=== PATIENT | male | born 1945 | race African-American/Black ===

== ENCOUNTER 2016-08-22 08:40 | Inpatient (IN) | payer MEDICARE, OTHER ==
[~2016-08-22] VITALS: Ht 172 cm; Wt 63.5 kg
[2016-08-22] MEDS ORDERED: AMLODIPINE BESYL5 MG ORAL (08:59)
[2016-08-22] MEDS ORDERED: COLACE100 MG ORAL (08:59)
[2016-08-22] MEDS ORDERED: ASPIR 8181 MG ORAL (08:59)
[2016-08-22] MEDS ORDERED: ACETAMINOPHEN325 M3 PO (08:59)
[2016-08-22] MEDS ORDERED: EDARBYCLOR 40-1 EAC1 ORAL (08:59)
[2016-08-22] MEDS ORDERED: COREG12.5 MG ORAL (08:59)
[2016-08-22] MEDS ORDERED: FERROUS SULFAT325 MG ORAL (09:01)
[2016-08-22] MEDS ORDERED: HYDROCODON-ACE1 EA15 ORAL (09:01)
[2016-08-22] MEDS ORDERED: ISOSORBIDE DINI40 MG ORAL (09:01)
[2016-08-22] MEDS ORDERED: LIPITOR20 MG ORAL (09:03)
[2016-08-22] MEDS ORDERED: MIRTAZAPINE45 MG ORAL (09:03)
[2016-08-22] MEDS ORDERED: MULTIVITAMINS1 EAC8 ORAL (09:03)
[2016-08-22] MEDS ORDERED: OMEPRAZOLE20 M3 ORAL (09:03)
[2016-08-22] MEDS ORDERED: MELATONIN3 MG ORAL (09:03)
[2016-08-22] MEDS ORDERED: ZOSYN 3.3753.375 GM IV (09:05)
[2016-08-22] MEDS ORDERED: XARELTO20 MG ORAL (09:05)
[2016-08-22] MEDS ORDERED: VANCOMYCIN1 GM/2502 IVPB (09:05)
[2016-08-22 09:16] VITALS: BP 149/52
--- NOTE | 2016-08-22 09:16 | Emergency Room Report ---
History of Present Illness General Chief Complaint: Abnormal Labs Source: Medical Record Present Illness HPI 71-year-old male presents to ED for abnormal labs. Patient referred from SNF for low hemoglobin. Patient has recent history of left leg amputation due to peripheral ischemia. Patient currently has a PICC line in place and given antibiotics for stump infection. Patient recently last which showed low hemoglobin. Patient states he feels okay. Denies any prior history of transfusions however records show patient has been transfused in the past. Denies feeling weak. Denies any chest pain or shortness of breath. No other aggravating relieving factors. Denies any other associated symptoms. PMD is Dr. Barry Allergies: Coded Allergies: No Known Allergies (Unverified , 08/22/16) Patient History Past Medical History: HTN, COPD, psych hx Past Surgical History: other - LLE amputation Pertinent Family History: none Social History: Denies: alcohol use, drug use, smoking Immunizations: UTD Reviewed Nursing Documentation: PMH: Agreed, PSxH: Agreed Nursing Documentation-PMH Hx Cardiac Problems: Yes Hx Hypertension: Yes Hx COPD: Yes History Of Psychiatric Problem: Yes - depression Review of Systems All Other Systems: negative except mentioned in HPI Physical Exam Vital Signs Date Time Temp Pulse Resp B/P Pulse Ox O2 Delivery O2 Flow Rate FiO2 08/22/16 08:39 97.9 78 16 120/70 98 Room Air Sp02 EP Interpretation: reviewed, normal General Appearance: no apparent distress, alert, GCS 15, non-toxic Head: normocephalic Eyes: bilateral eye PERRL, bilateral eye normal inspection ENT: normal ENT inspection Neck: normal inspection Respiratory: chest non-tender, lungs clear, normal breath sounds, speaking full sentences Cardiovascular #1: regular rate, rhythm, no edema Gastrointestinal: normal bowel sounds, non tender, soft, non-distended, no guarding, no rebound Rectal: deferred Genitourinary: no CVA tenderness Musculoskeletal: other - s/p L AKA. approximately 12 cm open wound noted. some discharge noted. no erythema/induration Neurologic: alert, oriented x3, responsive, motor strength/tone normal, sensory intact, speech normal Psychiatric: normal inspection Skin: normal inspection Lymphatic: normal inspection Medical Decision Making Diagnostic Impression: Primary Impression: Anemia Qualified Codes: D64.9 - Anemia, unspecified Additional Impressions: Infection of amputation stump of left lower extremity ARF (acute renal failure) Qualified Codes: N17.9 - Acute kidney failure, unspecified ER Course Hospital Course 71-year-old male presents to ED for evaluation of possible anemia, with possible transfusion. also c/o pain to L stump s/p L AKA Differential diagnoses include: anemia requiring transfusion, microcytic anemia , macrocytic anemia, heavy blood loss Clinical course Patient placed on stretcher. After initial history and physical I ordered labs including CBC and type and screen. wound culture obtained. Labs- hemoglobin/hematocrit 01/09. noted leukocytosis. Cr 1.3 abx given. PRBCs ordered. pain mediications given Case discussed with Dr Barry agreed to admit the patient to his service for further care and support Diagnosis - anemia, infection of amputation stump of LLE, ARF Admitted to floor in serious condition Labs Test 08/22/16 09:05 White Blood Count 13.1 K/UL (4.8-10.8) Red Blood Count 2.11 M/UL (4.70-6.10) Hemoglobin 7.0 G/DL (14.2-18.0) Hematocrit 22.2 % (42.0-52.0) Mean Corpuscular Volume 105 FL (80-99) Mean Corpuscular Hemoglobin 33.1 PG (27.0-31.0) Mean Corpuscular Hemoglobin Concent 31.6 G/DL (32.0-36.0) Red Cell Distribution Width 17.3 % (11.6-14.8) Platelet Count 304 K/UL (150-450) Mean Platelet Volume 7.0 FL (6.5-10.1) Neutrophils (%) (Auto) % (45.0-75.0) Lymphocytes (%) (Auto) % (20.0-45.0) Monocytes (%) (Auto) % (1.0-10.0) Eosinophils (%) (Auto) % (0.0-3.0) Basophils (%) (Auto) % (0.0-2.0) Prothrombin Time 10.8 SEC (9.30-11.50) Prothromb Time International Ratio 1.1 (0.9-1.1) Activated Partial Thromboplast Time 28 SEC (23-33) Sodium Level 136 mEQ/L (135-145) Potassium Level 4.2 mEQ/L (3.4-4.9) Chloride Level 98 mEQ/L (98-107) Carbon Dioxide Level 22 mEQ/L (20-30) Anion Gap 16 (5-15) Blood Urea Nitrogen 27 mg/dL (7-23) Creatinine 1.3 mg/dL (0.7-1.2) Estimat Glomerular Filtration Rate mL/min (>60) Glucose Level 98 mg/dL (74-106) Calcium Level 9.2 mg/dL (8.6-10.2) Total Bilirubin < 0.2 mg/dL (0.0-1.2) Aspartate Amino Transf (AST/SGOT) 18 U/L (5-40) Alanine Aminotransferase (ALT/SGPT) 13 U/L (3-41) Alkaline Phosphatase 54 U/L (40-129) Total Creatine Kinase 85 U/L (38-174) Creatine Kinase MB 3.0 ng/mL (< 6.7) Creatine Kinase MB Relative Index 3.5 Troponin I < 0.30 ng/mL (<=0.30) Total Protein 6.5 g/dL (6.6-8.7) Albumin 3.3 g/dL (3.5-5.2) Globulin 3.2 g/dL Albumin/Globulin Ratio 1.0 (1.0-2.7) Last Vital Signs Date Time Temp Pulse Resp B/P Pulse Ox O2 Delivery O2 Flow Rate FiO2 08/22/16 08:39 97.9 78 16 120/70 98 Room Air Status: improved Disposition: ADMITTED INPATIENT Condition: Serious Referrals: Fritz Barry MD (PCP) LANEY PANDEY M.D. Aug 22, 2016 09:16
[2016-08-22] MEDS ORDERED: Morphine Sulfate 4mg/ml Inj IVP ONE (09:30)
[2016-08-22] MEDS ORDERED: Vancomycin 1 GM in NS 275 ML IV ONE (09:30)
[2016-08-22] MEDS ORDERED: Piperacillin/Tazobactam 3.375 GM in NS 110 ML IVPB ONE (09:30)
[2016-08-22] MEDS ORDERED: Zosyn 3.375gm inj ONE (09:41)
[2016-08-22] MEDS ORDERED: LORazepam Inj 2mg/ml 1ml IV PRN (09:45)
[2016-08-22] MEDS ORDERED: Mylanta II UD 30ml ORAL PRN (09:45)
[2016-08-22] MEDS ORDERED: Miralax 17gm pkt ORAL PRN (09:45)
[2016-08-22] MEDS ORDERED: Zolpidem 5mg tab ORAL PRN (09:45)
[2016-08-22 09:55] LABS: MEAN CORPUSCULAR HEMOGLOBIN 33.1 PG (27.0-31.0); MEAN CORPUSCULAR HGB CONC 31.6 G/DL (32.0-36.0); MEAN CORPUSCULAR VOLUME 105 FL (80-99); PLATELET COUNT 304 K/UL (150-450); RED BLOOD COUNT 2.11 M/UL (4.70-6.10); RED CELL DISTRIBUTION WIDTH 17.3 % (11.6-14.8); WHITE BLOOD COUNT 13.1 K/UL (4.8-10.8)
[2016-08-22 09:58] LABS: ALANINE AMINOTRANSFERASE 13 U/L (3-41); ANION GAP 16 (5-15); ASPARTATE AMINO TRANSFERASE 18 U/L (5-40); CALCIUM 9.2 mg/dL (8.6-10.2); CARBON DIOXIDE 22 mEQ/L (20-30); CHLORIDE 98 mEQ/L (98-107); CREATININE 1.3 mg/dL (0.7-1.2); HEMOLYSIS 0; POTASSIUM 4.2 mEQ/L (3.4-4.9); SODIUM 136 mEQ/L (135-145); TOTAL PROTEIN 6.5 g/dL (6.6-8.7)
[2016-08-22 10:00] LABS: INR 1.1 (0.9-1.1); PROTHROMBIN TIME 10.8 SEC (9.30-11.50)
[2016-08-22 10:05] LABS: TROPONIN I < 0.30 ng/mL (<=0.30)
[2016-08-22 10:56] VITALS: BP 115/49
[2016-08-22 12:19] LABS: ANISOCYTOSIS 1+; BAND NEUTROPHILS % (MANUAL) 0 % (0-8); BASOPHILS % (MANUAL) 0 % (0-2); EOSINOPHILS % (MANUAL) 1 % (0-3); LYMPHOCYTES % (MANUAL) 28 % (20-45); NEUTROPHILS % (MANUAL) 70 % (45-75); PLATELET ESTIMATE ADEQUATE; PLATELET MORPHOLOGY NORMAL; POLYCHROMASIA 1+; TOTAL CELLS COUNTED 100
[2016-08-22 12:20] VITALS: BP 124/51
[2016-08-22 12:20] LABS: HYPOCHROMASIA 1+; MACROCYTES 1+
[2016-08-22 16:08] VITALS: BP 130/53
[2016-08-22] MEDS: Cefepime HCl 1 GM in D5W 55 ML IV SCH (17:25)
[2016-08-22] MEDS ORDERED: Piperacillin/Tazobactam 3.375 GM in D5W 110 ML IVPB SCH (18:00)
--- NOTE | 2016-08-22 18:01 | Consultation ---
History of Present Illness General Date patient seen: Aug 22, 2016 Time patient seen: 18:00 Chief Complaint: Abnormal Labs Referring physician: dr Barry Reason for Consultation: internal medicine management Present Illness HPI 71-year-old male presented to ED for abnormal labs. Patient was referred from [facility] for low hemoglobin. Patient on Xarelto due to A fib Patient had recent history of left leg amputation due to peripheral ischemia. Patient currently has a PICC line for IV antibiotics for stump infection. Denied any prior history of transfusions however records indicated patient has been transfused in the past. Denied feeling weak, dizziness, SON, chest pain . Workup in ED revealed leukocytosis-13.1, HH-7.0/22.2 evidence of renal insufficiency /.3 troponin negative albumin 3.4 PMH: ICD, cardiomyopathy, A fibrillation, CAD, PVD, s/p L AKA, COPD, OA, anemia, depression Allergies: Coded Allergies: No Known Allergies (Unverified , 08/22/16) Medication History Scheduled Amlodipine Besylate* (Amlodipine Besylate*), 5 MG ORAL DAILY, (Reported) Aspirin* (Aspir 81*), 81 MG ORAL DAILY, (Reported) Atorvastatin Calcium* (Lipitor*), 20 MG ORAL BEDTIME, (Reported) Azilsartan Med/Chlorthalidone (Edarbyclor 40-25 Mg Tablet), 1 TAB ORAL DAILY, ( Reported) Carvedilol (Coreg), 12.5 MG ORAL EVERY 12 HOURS, (Reported) Docusate Sodium* (Colace*), 100 MG ORAL DAILY, (Reported) Ferrous Sulfate* (Ferrous Sulfate*), 325 MG ORAL DAILY, (Reported) Isosorbide Dinitrate* (Isordil*), 40 MG ORAL BID, (Reported) Mirtazapine* (Remeron*), 45 MG ORAL BEDTIME, (Reported) Multivitamin With Minerals (Multivitamins With Minerals*), 1 TAB ORAL DAILY, ( Reported) Omeprazole (Omeprazole), 20 MG ORAL DAILY, (Reported) Piperacillin Sodium/Tazobactam (Zosyn 3.375 Gram Vial), 3.375 GM IV EVERY 6 HOURS, (Reported) Rivaroxaban (Xarelto), 20 MG ORAL DAILY, (Reported) Vancomycin Hcl/D5w (Vancomycin-D5w 1 G/250 Ml), 1 GM IVPB Q24H, (Reported) Scheduled PRN Acetaminophen (Acetaminophen), 650 MG PO EVERY 6 HOURS PRN for For Pain, ( Reported) Hydrocodone/Acetaminophen 5-325* (Hydrocodone/Acetaminophen 5-325*), 1 TAB ORAL Q6H PRN for For Pain, (Reported) Melatonin (Melatonin), 3 MG ORAL BEDTIME PRN for Insomnia, (Reported) Patient History Healthcare decision maker Resuscitation status Full Code Advanced Directive on File Review of Systems Constitutional: Reports: no symptoms Eye: Reports: no symptoms ENT: Reports: no symptoms Respiratory: Reports: other - COPD Cardiovascular: Reports: other - ICD, CAD, A fib, PVD Gastrointestinal: Reports: no symptoms Genitourinary: Reports: no symptoms Musculoskeletal: Reports: other - L AKA Skin: Reports: see HPI Psychiatric: Reports: depressed feelings Neurological: Reports: no symptoms Endocrine: Reports: no symptoms Hematologic/Lymphatic: Reports: anemia Physical Exam General Appearance: no apparent distress, alert, other - A/A/O thin AA male in NAD Lines, tubes and drains: PICC - RUE intact HEENT: normocephalic, atraumatic, anicteric, mucous membranes moist, PERRL Neck: supple Respiratory/Chest: chest wall non-tender, lungs clear, normal breath sounds, no respiratory distress, no accessory muscle use Cardiovascular/Chest: normal rate, no JVD, irregularly irregular, other - R UE PICC intact , Left chest ICD Abdomen: normal bowel sounds, non tender, soft Extremities: other - L AKA Skin Exam: warm/dry, other - L AKA. approximately 12 cm open wound with scant amount of serous discharge , no erythema/induration, wound vac Neurologic: alert, oriented x 3, responsive Last 24 Hour Vital Signs Date Time Temp Pulse Resp B/P Pulse Ox O2 Delivery O2 Flow Rate FiO2 08/22/16 16:08 98.8 71 16 130/53 97 Room Air 08/22/16 14:02 97.6 70 17 124/51 98 Room Air 08/22/16 12:20 70 17 124/51 98 Room Air 08/22/16 10:56 97.6 73 12 115/49 100 Room Air 08/22/16 09:57 97.6 08/22/16 09:16 97.6 71 15 149/52 100 Room Air 08/22/16 08:39 97.9 78 16 120/70 98 Room Air Laboratory Tests Test 08/22/16 09:05 White Blood Count 13.1 K/UL (4.8-10.8) H Red Blood Count 2.11 M/UL (4.70-6.10) L Hemoglobin 7.0 G/DL (14.2-18.0) L Hematocrit 22.2 % (42.0-52.0) L Mean Corpuscular Volume 105 FL (80-99) H Mean Corpuscular Hemoglobin 33.1 PG (27.0-31.0) H Mean Corpuscular Hemoglobin Concent 31.6 G/DL (32.0-36.0) L Red Cell Distribution Width 17.3 % (11.6-14.8) H Platelet Count 304 K/UL (150-450) Mean Platelet Volume 7.0 FL (6.5-10.1) Neutrophils (%) (Auto) % (45.0-75.0) Lymphocytes (%) (Auto) % (20.0-45.0) Monocytes (%) (Auto) % (1.0-10.0) Eosinophils (%) (Auto) % (0.0-3.0) Basophils (%) (Auto) % (0.0-2.0) Differential Total Cells Counted 100 Neutrophils % (Manual) 70 % (45-75) Lymphocytes % (Manual) 28 % (20-45) Monocytes % (Manual) 1 % (1-10) Eosinophils % (Manual) 1 % (0-3) Basophils % (Manual) 0 % (0-2) Band Neutrophils 0 % (0-8) Platelet Estimate Adequate Platelet Morphology Normal Polychromasia 1+ Hypochromasia 1+ Anisocytosis 1+ Macrocytosis 1+ Prothrombin Time 10.8 SEC (9.30-11.50) Prothromb Time International Ratio 1.1 (0.9-1.1) Activated Partial Thromboplast Time 28 SEC (23-33) Sodium Level 136 mEQ/L (135-145) Potassium Level 4.2 mEQ/L (3.4-4.9) Chloride Level 98 mEQ/L (98-107) Carbon Dioxide Level 22 mEQ/L (20-30) Anion Gap 16 (5-15) H Blood Urea Nitrogen 27 mg/dL (7-23) H Creatinine 1.3 mg/dL (0.7-1.2) H Estimat Glomerular Filtration Rate mL/min (>60) Glucose Level 98 mg/dL (74-106) Calcium Level 9.2 mg/dL (8.6-10.2) Total Bilirubin < 0.2 mg/dL (0.0-1.2) Aspartate Amino Transf (AST/SGOT) 18 U/L (5-40) Alanine Aminotransferase (ALT/SGPT) 13 U/L (3-41) Alkaline Phosphatase 54 U/L (40-129) Total Creatine Kinase 85 U/L (38-174) Creatine Kinase MB 3.0 ng/mL (< 6.7) Creatine Kinase MB Relative Index 3.5 Troponin I < 0.30 ng/mL (<=0.30) Total Protein 6.5 g/dL (6.6-8.7) L Albumin 3.3 g/dL (3.5-5.2) L Globulin 3.2 g/dL Albumin/Globulin Ratio 1.0 (1.0-2.7) Height (Feet): 5 Height (Inches): 7.72 Weight (Pounds): 140 Medications Current Medications Medications (Trade) Dose Ordered Sig/Sis Route PRN Reason Start Time Stop Time Status Last Admin Dose Admin Acetaminophen (Tylenol) 650 mg Q4H PRN ORAL fever 08/22/16 09:45 09/21/16 09:44 Al Hydroxide/Mg Hydroxide (Mylanta II) 30 ml Q6H PRN ORAL dyspepsia 08/22/16 09:45 09/21/16 09:44 Amlodipine Besylate (Norvasc) 5 mg DAILY ORAL 08/23/16 09:00 09/22/16 08:59 Atorvastatin Calcium (Lipitor) 20 mg BEDTIME ORAL 08/22/16 21:00 09/21/16 20:59 Carvedilol (Coreg) 12.5 mg EVERY 12 HOURS ORAL 08/22/16 21:00 09/21/16 20:59 Cefepime HCl 1 gm/ Dextrose 55 ml @ 110 mls/hr Q24H IV 08/22/16 16:00 08/29/16 15:59 08/22/16 17:25 Dextrose (Dextrose 50%) STAT PRN IV Hypoglycemia 08/22/16 09:45 09/21/16 09:44 Heparin Sodium (Porcine) (Heparin 5000 units/ml) 5,000 units EVERY 12 HOURS SUBQ 08/22/16 21:00 09/21/16 20:59 Lorazepam (Ativan 2mg/ml 1ml) 0.5 mg Q4H PRN IV For Anxiety 08/22/16 09:45 08/29/16 09:44 Morphine Sulfate (Morphine Sulfate) 1 mg Q4H PRN IVP For Pain 08/22/16 09:45 08/29/16 09:44 Ondansetron HCl (Zofran) 4 mg Q6H PRN IVP Nausea & Vomiting 08/22/16 09:45 09/21/16 09:44 Piperacillin Sod/ Tazobactam Sod/ Dextrose (Zosyn/D5W) 110 ml @ 27.5 mls/hr Q8HR@0300,1100,1900 IVPB 08/22/16 18:00 08/29/16 17:59 Polyethylene Glycol (Miralax) 17 gm HSPRN PRN ORAL Constipation 08/22/16 09:45 09/21/16 09:44 Vancomycin HCl 1 ea 1 ea DAILY PRN MISC Per rx protocol 08/22/16 09:45 09/21/16 09:44 Vancomycin HCl 1 gm/Dextrose 275 ml @ 183.708 mls/hr Q24H IVPB 08/23/16 09:00 08/28/16 08:59 Zolpidem Tartrate (Ambien) 5 mg HSPRN PRN ORAL Insomnia 08/22/16 09:45 09/21/16 09:44 Assessment/Plan Assessment/Plan ASSESSMENT leukocytosis possible sepsis infected left leg stump acute anemia, requiring blood transfusion acute renal failure, possibly on chronic Left AKA A fib COPD cardiomyopathy ICD PLAN OF CARE [facility] floor empiric abx, fup with cx ID consult as per PMD O2 HHN prn CXR transfuse 2 u PRBC today anemia workup renal US no IVF due to hx of cardiomyopathy get ECHO pain management bowel regimen fall precautions PT/OT check prealbumin dietary eval wound nurse eval case discussed and evaluated by supervising physician Adán Leavitt)Chio NP Aug 22, 2016 18:01
[2016-08-22] MEDS ORDERED: DuoNeb 0.5-3(2.5)mg/3ml neb HHN PRN (18:15)
[2016-08-22] MEDS: Piperacillin/Tazobactam 3.375 GM in D5W 110 ML IVPB SCH (18:53)
[2016-08-22 20:00] VITALS: BP 151/80
[2016-08-22] MEDS ORDERED: Heparin 5000 units/ml inj SUBQ SCH (21:00)
[2016-08-22] MEDS: Atorvastatin 20mg tab ORAL SCH (22:54)
[2016-08-22] MEDS: Carvedilol 12.5mg tab ORAL SCH (22:55)
[2016-08-23] VITALS: BP 124/47
[2016-08-23] MEDS: Morphine Sulfate 2mg/ml Inj IVP PRN (00:36)
[2016-08-23] MEDS: Piperacillin/Tazobactam 3.375 GM in D5W 110 ML IVPB SCH (03:00)
[2016-08-23 04:00] VITALS: BP 151/61
[2016-08-23 08:15] VITALS: BP 142/63
[2016-08-23] MEDS: Carvedilol 12.5mg tab ORAL SCH ×2 (09:43→21:21)
[2016-08-23] MEDS: Vancomycin 1gm/D5W 275ml IVPB SCH ×2 (09:44)
[2016-08-23 10:19] LABS: BASOPHILS % (AUTO) 0.9 % (0.0-2.0); EOSINOPHILS % (AUTO) 1.9 % (0.0-3.0); LYMPHOCYTES % (AUTO) 21.5 % (20.0-45.0); MEAN CORPUSCULAR HEMOGLOBIN 31.5 PG (27.0-31.0); MEAN CORPUSCULAR HGB CONC 32.2 G/DL (32.0-36.0); MEAN CORPUSCULAR VOLUME 98 FL (80-99); MEAN PLATELET VOLUME 6.8 FL (6.5-10.1); MONOCYTES % (AUTO) 7.1 % (1.0-10.0); NEUTROPHILS % (AUTO) 68.5 % (45.0-75.0); PLATELET COUNT 243 K/UL (150-450); RED BLOOD COUNT 2.97 M/UL (4.70-6.10); RED CELL DISTRIBUTION WIDTH 17.2 % (11.6-14.8); WHITE BLOOD COUNT 10.6 K/UL (4.8-10.8)
[2016-08-23 10:32] LABS: ALANINE AMINOTRANSFERASE 11 U/L (3-41); ANION GAP 12 (5-15); ASPARTATE AMINO TRANSFERASE 18 U/L (5-40); CALCIUM 8.9 mg/dL (8.6-10.2); CARBON DIOXIDE 24 mEQ/L (20-30); CHLORIDE 100 mEQ/L (98-107); CHOLESTEROL 101 mg/dL (< 200); HEMOLYSIS 3; LDL CHOLESTEROL (CALC.) 52 mg/dL (60-99); POTASSIUM 4.4 mEQ/L (3.4-4.9); SODIUM 136 mEQ/L (135-145); TOTAL PROTEIN 5.8 g/dL (6.6-8.7)
[2016-08-23 10:44] LABS: FERRITIN 115 ng/mL (10-230)
--- NOTE | 2016-08-23 10:44 | Diagnostic Imaging Report ---
Indication: Back pain Technique: Renal ultrasound Findings: The right kidney measures 10.3 cm in length. The left kidney measures 10.6 cm in length. There is no hydronephrosis. Bladder is not well distended limiting evaluation. Visualized IVC is unremarkable. Impression: Technically limited examination without hydronephrosis. Bladder not well distended limiting evaluation. CT may be obtained for further evaluation as indicated.
[2016-08-23 10:47] LABS: HEMOLYSIS 13; IRON 50 ug/dL (59-158); TOTAL IRON BINDING CAPACITY 244 ug/dL (250-400)
[2016-08-23 10:50] LABS: HEMOGLOBIN A1C 4.6 % (< 6.0)
[2016-08-23] MEDS ORDERED: Tubing Blood Filter IV ONE (11:08)
[2016-08-23] MEDS ORDERED: Tubing IV Secondary IV ONE (11:08)
[2016-08-23] MEDS ORDERED: NS 275ml ONE (11:08)
[2016-08-23 12:15] VITALS: BP 139/68
--- NOTE | 2016-08-23 12:50 | History & Physical ---
History and Physical History & Physicial Dictated for Int Med-Dr Barry no. [id number]. RANCHO GARDUNO Aug 23, 2016 12:50
--- NOTE | 2016-08-23 12:54 | Pulmonology Progress Note ---
Assessment/Plan Assessment/Plan ASSESSMENT leukocytosis resolved possible sepsis infected left leg stump wound vac acute anemia, iron deficiency s/p blood transfusion acute renal failure/ATN - resolved Left AKA A fib COPD cardiomyopathy ICD PLAN OF CARE [facility] floor empiric abx, fup with cx ID consult as per PMD wound nurse janine re wound vac O2 HHN prn CXR s/p 2 u PRBC on 08/22 , HH up anemia workup with low iron and ferritin, stable B12 start Venofer x 3 ays renal US no hydro no IVF due to hx of cardiomyopathy ECHO pain management bowel regimen fall precautions PT/OT check prealbumin -pending dietary eval case discussed and evaluated by supervising physician Subjective Allergies: Coded Allergies: No Known Allergies (Unverified , 08/22/16) Subjective leukocytosis resolved, afebrile s/p 2 u PRBC, HH up to 9.09/16 Objective Last 24 Hour Vital Signs Date Time Temp Pulse Resp B/P Pulse Ox O2 Delivery O2 Flow Rate FiO2 08/23/16 12:15 98.6 85 21 139/68 96 Room Air 08/23/16 09:43 73 142/63 08/23/16 09:43 73 142/63 08/23/16 08:15 97.9 73 20 142/63 99 Room Air 08/23/16 04:00 96.8 75 20 151/61 99 Room Air 08/23/16 00:00 97.7 60 18 124/47 99 Room Air 08/22/16 22:55 83 151/80 08/22/16 22:34 81 18 Room Air 08/22/16 20:00 97.7 83 18 151/80 100 Room Air 08/22/16 16:08 98.8 71 16 130/53 97 Room Air 08/22/16 14:02 97.6 70 17 124/51 98 Room Air Intake and Output 08/22/16 08/23/16 19:00 07:00 Intake Total 850 ml 250 ml Output Total 1050 ml Balance 850 ml -800 ml Intake Oral 350 ml Other 500 ml 250 ml Output Urine Total 1050 ml # Voids 1 3 # Bowel Movements 1 Objective General Appearance: no apparent distress, alert, other - A/A/O thin AA male in NAD Lines, tubes and drains: PICC - RUE intact HEENT: normocephalic, atraumatic, anicteric, mucous membranes moist, PERRL Neck: supple Respiratory/Chest: chest wall non-tender, lungs clear, normal breath sounds, no respiratory distress, no accessory muscle use Cardiovascular/Chest: normal rate, no JVD, irregularly irregular, R UE PICC intact , Left chest ICD Abdomen: normal bowel sounds, non tender, soft Extremities: other - L AKA Skin Exam: warm/dry, other - L AKA. approximately 12 cm open wound with scant amount of serous discharge , no erythema/induration, wound vac Neurologic: alert, oriented x 3, responsive Microbiology Date/Time Source Procedure Growth Status 08/22/16 09:05 Wound Gram Stain - Final Resulted 08/22/16 09:05 Wound Wound Culture - Preliminary NO GROWTH AFTER 24 HOURS Resulted Laboratory Tests 08/23/16 09:50: White Blood Count 10.6, Red Blood Count 2.97L, Hemoglobin 9.3#L, Hematocrit 29.0 #L, Mean Corpuscular Volume 98, Mean Corpuscular Hemoglobin 31.5H, Mean Corpuscular Hemoglobin Concent 32.2, Red Cell Distribution Width 17.2H, Platelet Count 243, Mean Platelet Volume 6.8, Neutrophils (%) (Auto) 68.5, Lymphocytes (%) (Auto) 21.5, Monocytes (%) (Auto) 7.1, Eosinophils (%) (Auto) 1.9, Basophils (%) (Auto) 0.9, Sodium Level 136, Potassium Level 4.4, Chloride Level 100, Carbon Dioxide Level 24, Anion Gap 12, Blood Urea Nitrogen 18, Creatinine 1.0, Estimat Glomerular Filtration Rate , Glucose Level 114H, Hemoglobin A1c 4.6, Calcium Level 8.9, Iron Level 50L, Total Iron Binding Capacity 244L, Percent Iron Saturation 20, Unsaturated Iron Binding 194, Ferritin 115, Total Bilirubin 0.3, Aspartate Amino Transf (AST/SGOT) 18, Alanine Aminotransferase (ALT/SGPT) 11, Alkaline Phosphatase 41, Total Protein 5.8L, Albumin 3.0L, Globulin 2.8, Albumin/Globulin Ratio 1.0, Prealbumin [ Pending], Triglycerides Level 74, Cholesterol Level 101, LDL Cholesterol 52L, HDL Cholesterol 34, Cholesterol/HDL Ratio 3.0L, Vitamin B12 Level 287, Folate [ Pending], Thyroid Stimulating Hormone (TSH) 3.420 Current Medications Medications (Trade) Dose Ordered Sig/Sis Route PRN Reason Start Time Stop Time Status Last Admin Dose Admin Acetaminophen (Tylenol) 650 mg Q4H PRN ORAL fever 08/22/16 09:45 09/21/16 09:44 Al Hydroxide/Mg Hydroxide (Mylanta II) 30 ml Q6H PRN ORAL dyspepsia 08/22/16 09:45 09/21/16 09:44 Albuterol/ Ipratropium (DuoNeb 0.5-3(2.5)mg/3ml) 3 ml Q4H PRN HHN Shortness of Breath 08/22/16 18:15 08/27/16 18:14 Amlodipine Besylate (Norvasc) 5 mg DAILY ORAL 08/23/16 09:00 09/22/16 08:59 08/23/16 09:43 Atorvastatin Calcium (Lipitor) 20 mg BEDTIME ORAL 08/22/16 21:00 09/21/16 20:59 08/22/16 22:54 Carvedilol (Coreg) 12.5 mg EVERY 12 HOURS ORAL 08/22/16 21:00 09/21/16 20:59 08/23/16 09:43 Cefepime HCl 1 gm/ Dextrose 55 ml @ 110 mls/hr Q24H IV 08/22/16 16:00 08/29/16 15:59 08/22/16 17:25 Dextrose (Dextrose 50%) STAT PRN IV Hypoglycemia 08/22/16 09:45 09/21/16 09:44 Lorazepam (Ativan 2mg/ml 1ml) 0.5 mg Q4H PRN IV For Anxiety 08/22/16 09:45 08/29/16 09:44 Morphine Sulfate (Morphine Sulfate) 1 mg Q4H PRN IVP For Pain 08/22/16 09:45 08/29/16 09:44 08/23/16 00:36 Ondansetron HCl (Zofran) 4 mg Q6H PRN IVP Nausea & Vomiting 08/22/16 09:45 09/21/16 09:44 Polyethylene Glycol (Miralax) 17 gm HSPRN PRN ORAL Constipation 08/22/16 09:45 09/21/16 09:44 Vancomycin HCl 1 ea 1 ea DAILY PRN MISC Per rx protocol 08/22/16 09:45 09/21/16 09:44 Vancomycin HCl/ Dextrose (Vancomycin/D5W) 275 ml @ 183.708 mls/hr Q24H IVPB 08/23/16 09:00 08/28/16 08:59 08/23/16 09:44 Zolpidem Tartrate (Ambien) 5 mg HSPRN PRN ORAL Insomnia 08/22/16 09:45 09/21/16 09:44 Adán (Chio Lang NP Aug 23, 2016 12:54
[2016-08-23 15:42] VITALS: BP 144/64
[2016-08-23] MEDS: Cefepime HCl 1 GM in D5W 55 ML IV SCH (16:19)
[2016-08-23 20:00] VITALS: BP 108/58
[2016-08-23] MEDS: Atorvastatin 20mg tab ORAL SCH (21:21)
[2016-08-24] VITALS: BP 139/64
--- NOTE | 2016-08-24 00:08 | History and Physical Report ---
DATE OF ADMISSION: 08/23/2016 CHIEF COMPLAINT: The patient is a 71-year-old male, who underwent left wlfrx-faw-sggg amputation in June 2016 at [facility], presents with a chief complaint of low hemoglobin. HISTORY OF PRESENT ILLNESS: The patient is currently a resident of [facility]. The patient underwent left vuunx-blx-osky amputation at [facility] in June 2016. The patient was found to have hemoglobin of 6.6 on 08/21/2016 at [facility]. The patient was referred to [facility]. The patient was found to have hemoglobin of 7.0. The patient was admitted for severe anemia to rule out GI bleed. PAST MEDICAL HISTORY: Significant for: 1. Coronary artery disease, status post myocardial infarction. 2. Cardiomyopathy. 3. Severe peripheral vascular disease. 4. Hypertension. 5. Hypercholesterolemia. PAST SURGICAL HISTORY: Significant for: 1. June 2016, vyyae-acd-cbjv amputation of the left lower extremity. 2. Coronary artery bypass graft. 3. AICD placement. CURRENT MEDICATIONS: 1. Tylenol 650 mg one tablet p.o. q. 6 h. p.r.n. 2. Amlodipine 5 mg one tablet p.o. daily. 3. Aspirin 81 mg one tablet p.o. daily. 4. Lipitor 20 mg one tablet p.o. daily at bedtime. 5. Edarbyclor 40/25 mg one tablet p.o. daily. 6. Carvedilol 12.5 mg one tablet p.o. twice daily. 7. Iron sulfate 325 mg one tablet p.o. daily. 8. Bouton 5/325 mg one tablet p.o. q.6 h. p.r.n. 9. Isordil 40 mg one tablet p.o. twice daily. 10. Remeron 45 mg one tablet p.o. at bedtime. 11. Multivitamin one tablet p.o. daily. 12. Omeprazole 20 mg one tablet p.o. daily. 13. Xarelto 20 mg one tablet p.o. daily. ALLERGIES: No known drug allergies. SOCIAL HISTORY: The patient is a resident of [facility]. The patient is single. The patient denies tobacco use and having quit 10 years previously. The patient previously smoked 1-1/2 packs per day prior to that time. The patient denies alcohol use. REVIEW OF SYSTEMS: Constitutional: The patient denies weight loss or weight gain. The patient denies fevers or chills. HEENT: The patient denies ear or throat pain. Cardiovascular: The patient denies palpitations or chest pain. Chest: The patient denies wheezes or shortness of breath. Abdomen: The patient denies nausea, vomiting, or constipation. Genitourinary: The patient denies dysuria or increased frequency of urination. Neuromuscular: The patient has left amputation site pain above the knee. The patient denies seizures or generalized weakness. PHYSICAL EXAMINATION: VITAL SIGNS: Temperature is 97.7 degree, pulse 60, respirations 18, and blood pressure 124/47. GENERAL: The patient is a well-developed and well-nourished male, in no apparent distress. HEENT: Eyes, pupils are equal and responsive to light and accommodation. Extraocular movements are intact. NECK: Supple without lymphadenopathy. CHEST: Lungs are clear to auscultation bilaterally without wheezes or rales. CARDIOVASCULAR: Regular rhythm and rate. S1 and S2 are normal without murmurs, rubs, or gallops. ABDOMEN: Soft, nontender, and nondistended. Positive bowel sounds. No evidence of hepatosplenomegaly. No rebound guarding. EXTREMITIES: There is presence of left epwtj-nfa-qtum amputation. Otherwise, extremities are without clubbing, cyanosis, or edema. RECTAL: Refused. GENITAL: Refused. NEUROLOGIC: Cranial nerves II through XII are grossly intact without focal deficits. Motor strength is 5/5 bilaterally. Deep tendon reflexes are 2+ plantar. LABORATORY STUDIES: WBC is 13.1, hemoglobin 7.0, hematocrit 22.2, and platelets 304,000. Sodium is 136, potassium 4.2, chloride 98, CO2 22, BUN 27, creatinine 1.3, and glucose 98. ASSESSMENT: This is a 71-year-old male: 1. Anemia. 2. Coronary artery disease. 3. Severe cardiomyopathy. 4. Peripheral vascular disease. 5. Hypertension. 6. Hypercholesterolemia. 7. Left rqigb-lia-dyis amputation stump pain. TREATMENT: 1. Anemia. The patient's current hemoglobin is 7.0. The patient is scheduled to have two units of packed red blood cells transfused. Anemia may be secondary to blood loss due to kzqae-tje-jwsw amputation above versus acute gastrointestinal bleed. He will get Gastroenterology consultation with Dr. Bone. The patient will receive two units of packed red blood cells today. 2. Coronary artery disease. The patient is status post coronary artery bypass graft. 3. Cardiomyopathy. A Cardiology consultation will be obtained with Dr. Que Rojas. 4. Peripheral vascular disease. The patient is status post left vfoek-sgy-kdkf amputation. 5. Hypertension. Continue amlodipine as above. 6. Hypercholesterolemia. Continue Lipitor as above. Boy Tillman M.D. DR: Brice JOB#: [id number] CC:
--- NOTE | 2016-08-24 03:28 | Consultation ---
DATE OF CONSULTATION: 08/23/2016 INFECTIOUS DISEASES CONSULTATION PRIMARY ATTENDING PHYSICIAN: Fritz Barry M.D. REFERRING PHYSICIAN: This consult is for coverage of Dr. Coker. REASON FOR CONSULTATION: Infected left foot stump. HISTORY OF PRESENT ILLNESS: The patient is a 71-year-old male admitted yesterday from a nursing facility originally for abnormal labs. He was anemic. The patient had a recent history of hospitalization in [facility] because of gangrene in the left lower extremity that resulted in amputation of left leg above the knee. On the surgical site, the patient is warm with some discharge. PAST MEDICAL HISTORY: Significant for peripheral vascular disease, coronary artery disease status post bypass, COPD, chronic nicotine abuse, left above-knee amputation, dyslipidemia, hypertension, and depression. MEDICATIONS: Amlodipine, vancomycin, atorvastatin, carvedilol, albuterol, cefepime, Tylenol, morphine, MiraLAX, Zofran, and Mylanta. ALLERGIES: No known drug allergy. SOCIAL HISTORY: He is single. Currently, he is a half-way resident. Has a history of smoking. REVIEW OF SYSTEMS: Denies any fever or chills. No headache. No sore throat. No coughing. The patient has some nonproductive cough. No nausea. No vomiting. No diarrhea. No problem is passing urine. The patient ambulates with a cane. PHYSICAL EXAMINATION: GENERAL APPEARANCE: No acute distress. VITAL SIGNS: Afebrile, temperature 97.9 degrees, pulse 73, and blood pressure 142/63. HEAD AND NECK: [place] conjunctivae. HEART: Regular. Normal rate. LUNGS: Clear. ABDOMEN: Soft and nontender. EXTREMITIES: He has left above-knee amputation, had wound VAC. LABORATORY AND DIAGNOSTIC DATA: Labs, WBC at the time of the admission is 13.1 coming down to 10.6, hemoglobin is 9.3 after blood transfusion, hematocrit is 29, and platelets is 243,000. Sodium 136, potassium 4.4, chloride 100, bicarbonate 24, BUN 18, creatinine 1. Albumin is 3. Renal ultrasound showed no obstruction. Impression: Patient seems to have surgical site wound infection. The wound in the left foot stump is very deep and has some discharge. The patient has peripheral vascular disease, coronary artery disease, anemia, hypertension, and dyslipidemia. RECOMMENDATION: We will continue with cefepime and vancomycin. Zosyn was discontinued. We will get x-ray of left foot stump to rule out osteomyelitis. The patient may need a bone scan or MRI. At the end of my exam, I thank Dr. Barry for involving me in the care of this patient. Gil Cao M.D. DR: RADHA JOB#: [id number] CC: MARIAMA
[2016-08-24 04:00] VITALS: BP 148/79
[2016-08-24 05:07] LABS: BASOPHILS % (AUTO) 0.7 % (0.0-2.0); EOSINOPHILS % (AUTO) 2.1 % (0.0-3.0); MEAN CORPUSCULAR HEMOGLOBIN 31.4 PG (27.0-31.0); MEAN CORPUSCULAR HGB CONC 32.2 G/DL (32.0-36.0); MEAN CORPUSCULAR VOLUME 97 FL (80-99); MEAN PLATELET VOLUME 7.6 FL (6.5-10.1); MONOCYTES % (AUTO) 7.7 % (1.0-10.0); NEUTROPHILS % (AUTO) 65.6 % (45.0-75.0); PLATELET COUNT 263 K/UL (150-450); RED BLOOD COUNT 3.23 M/UL (4.70-6.10); RED CELL DISTRIBUTION WIDTH 17.7 % (11.6-14.8); WHITE BLOOD COUNT 11.8 K/UL (4.8-10.8)
[2016-08-24 05:35] LABS: ANION GAP 10 (5-15); CALCIUM 9.2 mg/dL (8.6-10.2); CARBON DIOXIDE 23 mEQ/L (20-30); CHLORIDE 105 mEQ/L (98-107); CREATININE 0.9 mg/dL (0.7-1.2); HEMOLYSIS 6; POTASSIUM 4.4 mEQ/L (3.4-4.9); SODIUM 138 mEQ/L (135-145)
[2016-08-24 07:59] VITALS: BP 150/60
--- NOTE | 2016-08-24 08:56 | Infectious Diseases Prog Note ---
Assessment/Plan Assessment/Plan A: The patient is a 71-year-old Leukocytosis , improving Infected left foot stump. SP gangrene of left lower extremity SP AKA PVD CAD COPD HTN HLD Depression P: Continue with cefepime and vancomycin d# 2 Monitor CBC Monitor BMP Monitor Cultures ( Wnd ) wound care Subjective Allergies: Coded Allergies: No Known Allergies (Unverified , 08/22/16) Objective Vital Signs Last 24 Hour Vital Signs Date Time Temp Pulse Resp B/P Pulse Ox O2 Delivery O2 Flow Rate FiO2 08/24/16 07:59 97.9 68 20 150/60 96 Room Air 08/24/16 04:00 97.5 70 18 148/79 97 Room Air 08/24/16 00:00 97.9 75 18 139/64 96 Room Air 08/23/16 21:54 76 18 Room Air 08/23/16 21:21 77 131/76 08/23/16 20:00 98.2 65 20 108/58 99 Nasal Cannula 2.0 08/23/16 15:42 98.1 70 16 144/64 96 Room Air 08/23/16 12:15 98.6 85 21 139/68 96 Room Air 08/23/16 09:43 73 142/63 08/23/16 09:43 73 142/63 Height (Feet): 5 Height (Inches): 7.72 Weight (Pounds): 140 Microbiology Date/Time Source Procedure Growth Status 08/22/16 09:05 Wound Gram Stain - Final Resulted 08/22/16 09:05 Wound Wound Culture - Preliminary NO GROWTH AFTER 24 HOURS Resulted 08/22/16 09:05 Nasal Nares MRSA Culture - Final NO METHICILLIN RESISTANT STAPH AUREUS... Complete Laboratory Tests Test 08/23/16 09:50 08/24/16 04:20 White Blood Count 10.6 K/UL (4.8-10.8) 11.8 K/UL (4.8-10.8) H Red Blood Count 2.97 M/UL (4.70-6.10) L 3.23 M/UL (4.70-6.10) L Hemoglobin 9.3 G/DL (14.2-18.0) #L 10.1 G/DL (14.2-18.0) L Hematocrit 29.0 % (42.0-52.0) #L 31.4 % (42.0-52.0) L Mean Corpuscular Volume 98 FL (80-99) 97 FL (80-99) Mean Corpuscular Hemoglobin 31.5 PG (27.0-31.0) H 31.4 PG (27.0-31.0) H Mean Corpuscular Hemoglobin Concent 32.2 G/DL (32.0-36.0) 32.2 G/DL (32.0-36.0) Red Cell Distribution Width 17.2 % (11.6-14.8) H 17.7 % (11.6-14.8) H Platelet Count 243 K/UL (150-450) 263 K/UL (150-450) Mean Platelet Volume 6.8 FL (6.5-10.1) 7.6 FL (6.5-10.1) Neutrophils (%) (Auto) 68.5 % (45.0-75.0) 65.6 % (45.0-75.0) Lymphocytes (%) (Auto) 21.5 % (20.0-45.0) 24.0 % (20.0-45.0) Monocytes (%) (Auto) 7.1 % (1.0-10.0) 7.7 % (1.0-10.0) Eosinophils (%) (Auto) 1.9 % (0.0-3.0) 2.1 % (0.0-3.0) Basophils (%) (Auto) 0.9 % (0.0-2.0) 0.7 % (0.0-2.0) Sodium Level 136 mEQ/L (135-145) 138 mEQ/L (135-145) Potassium Level 4.4 mEQ/L (3.4-4.9) 4.4 mEQ/L (3.4-4.9) Chloride Level 100 mEQ/L (98-107) 105 mEQ/L (98-107) Carbon Dioxide Level 24 mEQ/L (20-30) 23 mEQ/L (20-30) Anion Gap 12 (5-15) 10 (5-15) Blood Urea Nitrogen 18 mg/dL (7-23) 17 mg/dL (7-23) Creatinine 1.0 mg/dL (0.7-1.2) 0.9 mg/dL (0.7-1.2) Estimat Glomerular Filtration Rate mL/min (>60) mL/min (>60) Glucose Level 114 mg/dL (74-106) H 92 mg/dL (74-106) Hemoglobin A1c 4.6 % (< 6.0) Calcium Level 8.9 mg/dL (8.6-10.2) 9.2 mg/dL (8.6-10.2) Iron Level 50 ug/dL (59-158) L Total Iron Binding Capacity 244 ug/dL (250-400) L Percent Iron Saturation 20 % (15-50) Unsaturated Iron Binding 194 ug/dL (112-346) Ferritin 115 ng/mL (10-230) Total Bilirubin 0.3 mg/dL (0.0-1.2) Aspartate Amino Transf (AST/SGOT) 18 U/L (5-40) Alanine Aminotransferase (ALT/SGPT) 11 U/L (3-41) Alkaline Phosphatase 41 U/L (40-129) Total Protein 5.8 g/dL (6.6-8.7) L Albumin 3.0 g/dL (3.5-5.2) L Globulin 2.8 g/dL Albumin/Globulin Ratio 1.0 (1.0-2.7) Prealbumin Pending Triglycerides Level 74 mg/dL (< 150) Cholesterol Level 101 mg/dL (< 200) LDL Cholesterol 52 mg/dL (60-99) L HDL Cholesterol 34 mg/dL (> 60) Cholesterol/HDL Ratio 3.0 (3.3-4.4) L Vitamin B12 Level 287 pg/mL (211-946) Folate Pending Thyroid Stimulating Hormone (TSH) 3.420 uIU/mL (0.300-4.500) Pro-B-Type Natriuretic Peptide 5357 pg/mL (0-125) H Current Medications Medications (Trade) Dose Ordered Sig/Sis Route PRN Reason Start Time Stop Time Status Last Admin Dose Admin Acetaminophen (Tylenol) 650 mg Q4H PRN ORAL fever 08/22/16 09:45 09/21/16 09:44 Al Hydroxide/Mg Hydroxide (Mylanta II) 30 ml Q6H PRN ORAL dyspepsia 08/22/16 09:45 09/21/16 09:44 Albuterol/ Ipratropium (DuoNeb 0.5-3(2.5)mg/3ml) 3 ml Q4H PRN HHN Shortness of Breath 08/22/16 18:15 08/27/16 18:14 Amlodipine Besylate (Norvasc) 5 mg DAILY ORAL 08/23/16 09:00 09/22/16 08:59 08/23/16 09:43 Atorvastatin Calcium (Lipitor) 20 mg BEDTIME ORAL 08/22/16 21:00 09/21/16 20:59 08/23/16 21:21 Carvedilol (Coreg) 12.5 mg EVERY 12 HOURS ORAL 08/22/16 21:00 09/21/16 20:59 08/23/16 21:21 Cefepime HCl 1 gm/ Dextrose 55 ml @ 110 mls/hr Q24H IV 08/22/16 16:00 08/29/16 15:59 08/23/16 16:19 Dextrose (Dextrose 50%) STAT PRN IV Hypoglycemia 08/22/16 09:45 09/21/16 09:44 Lorazepam (Ativan 2mg/ml 1ml) 0.5 mg Q4H PRN IV For Anxiety 08/22/16 09:45 08/29/16 09:44 Morphine Sulfate (Morphine Sulfate) 1 mg Q4H PRN IVP For Pain 08/22/16 09:45 08/29/16 09:44 08/23/16 00:36 Ondansetron HCl (Zofran) 4 mg Q6H PRN IVP Nausea & Vomiting 08/22/16 09:45 09/21/16 09:44 Polyethylene Glycol (Miralax) 17 gm HSPRN PRN ORAL Constipation 08/22/16 09:45 09/21/16 09:44 Vancomycin HCl 1 ea 1 ea DAILY PRN MISC Per rx protocol 08/22/16 09:45 09/21/16 09:44 Vancomycin HCl/ Dextrose (Vancomycin/D5W) 275 ml @ 183.708 mls/hr Q24H IVPB 08/23/16 09:00 08/28/16 08:59 08/23/16 09:44 Zolpidem Tartrate (Ambien) 5 mg HSPRN PRN ORAL Insomnia 08/22/16 09:45 09/21/16 09:44 JACK PATTERSON M.D. Aug 24, 2016 08:56
[2016-08-24] MEDS: Vancomycin 1gm/D5W 275ml IVPB SCH ×2 (09:10)
[2016-08-24] MEDS: Carvedilol 12.5mg tab ORAL SCH ×2 (09:10→21:27)
--- NOTE | 2016-08-24 11:18 | Internal Med Progress Note ---
Subjective Date of Service: Aug 24, 2016 Physician Name Rancho Garduno Attending Physician Fritz Barry MD Current Medications Medications (Trade) Dose Ordered Sig/Sis Route PRN Reason Start Time Stop Time Status Last Admin Dose Admin Acetaminophen (Tylenol) 650 mg Q4H PRN ORAL fever 08/22/16 09:45 09/21/16 09:44 Al Hydroxide/Mg Hydroxide (Mylanta II) 30 ml Q6H PRN ORAL dyspepsia 08/22/16 09:45 09/21/16 09:44 Albuterol/ Ipratropium (DuoNeb 0.5-3(2.5)mg/3ml) 3 ml Q4H PRN HHN Shortness of Breath 08/22/16 18:15 08/27/16 18:14 Amlodipine Besylate (Norvasc) 5 mg DAILY ORAL 08/23/16 09:00 09/22/16 08:59 08/24/16 09:11 Atorvastatin Calcium (Lipitor) 20 mg BEDTIME ORAL 08/22/16 21:00 09/21/16 20:59 08/23/16 21:21 Carvedilol (Coreg) 12.5 mg EVERY 12 HOURS ORAL 08/22/16 21:00 09/21/16 20:59 08/24/16 09:10 Cefepime HCl 1 gm/ Dextrose 55 ml @ 110 mls/hr Q24H IV 08/22/16 16:00 08/29/16 15:59 08/23/16 16:19 Dextrose (Dextrose 50%) STAT PRN IV Hypoglycemia 08/22/16 09:45 09/21/16 09:44 Lorazepam (Ativan 2mg/ml 1ml) 0.5 mg Q4H PRN IV For Anxiety 08/22/16 09:45 08/29/16 09:44 Morphine Sulfate (Morphine Sulfate) 1 mg Q4H PRN IVP For Pain 08/22/16 09:45 08/29/16 09:44 08/23/16 00:36 Ondansetron HCl (Zofran) 4 mg Q6H PRN IVP Nausea & Vomiting 08/22/16 09:45 09/21/16 09:44 Polyethylene Glycol (Miralax) 17 gm HSPRN PRN ORAL Constipation 08/22/16 09:45 09/21/16 09:44 Vancomycin HCl 1 ea 1 ea DAILY PRN MISC Per rx protocol 08/22/16 09:45 09/21/16 09:44 Vancomycin HCl/ Dextrose (Vancomycin/D5W) 275 ml @ 183.708 mls/hr Q24H IVPB 08/23/16 09:00 08/28/16 08:59 08/24/16 09:10 Zolpidem Tartrate (Ambien) 5 mg HSPRN PRN ORAL Insomnia 08/22/16 09:45 09/21/16 09:44 Allergies: Coded Allergies: No Known Allergies (Unverified , 08/22/16) ROS Limited/Unobtainable: No Constitutional: Reports: no symptoms HEENT: Reports: no symptoms Cardiovascular: Reports: no symptoms Respiratory: Reports: no symptoms Gastrointestinal/Abdominal: Reports: no symptoms Genitourinary: Reports: no symptoms Neurologic/Psychiatric: Reports: no symptoms Subjective 71 YO M admitted with anemia and left AKA infection. Cover for Int Michael-Dr Barry. Objective Last Vital Signs Date Time Temp Pulse Resp B/P Pulse Ox O2 Delivery O2 Flow Rate FiO2 08/24/16 09:11 68 150/60 08/24/16 07:59 97.9 20 96 Room Air 08/23/16 20:00 2.0 General Appearance: WD/WN, no apparent distress, alert EENT: PERRL/EOMI, normal ENT inspection Neck: non-tender, normal alignment, supple, normal inspection Cardiovascular: normal peripheral pulses, normal rate, regular rhythm, no gallop/murmur, no JVD Respiratory/Chest: chest wall non-tender, lungs clear, normal breath sounds, no respiratory distress, no accessory muscle use Abdomen: normal bowel sounds, non tender, soft, no organomegaly, no mass Extremities: normal range of motion, non-tender 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 Skin: normal pigmentation, warm/dry Laboratory Tests Test 08/24/16 04:20 White Blood Count 11.8 K/UL (4.8-10.8) H Red Blood Count 3.23 M/UL (4.70-6.10) L Hemoglobin 10.1 G/DL (14.2-18.0) L Hematocrit 31.4 % (42.0-52.0) L Mean Corpuscular Volume 97 FL (80-99) Mean Corpuscular Hemoglobin 31.4 PG (27.0-31.0) H Mean Corpuscular Hemoglobin Concent 32.2 G/DL (32.0-36.0) Red Cell Distribution Width 17.7 % (11.6-14.8) H Platelet Count 263 K/UL (150-450) Mean Platelet Volume 7.6 FL (6.5-10.1) Neutrophils (%) (Auto) 65.6 % (45.0-75.0) Lymphocytes (%) (Auto) 24.0 % (20.0-45.0) Monocytes (%) (Auto) 7.7 % (1.0-10.0) Eosinophils (%) (Auto) 2.1 % (0.0-3.0) Basophils (%) (Auto) 0.7 % (0.0-2.0) Sodium Level 138 mEQ/L (135-145) Potassium Level 4.4 mEQ/L (3.4-4.9) Chloride Level 105 mEQ/L (98-107) Carbon Dioxide Level 23 mEQ/L (20-30) Anion Gap 10 (5-15) Blood Urea Nitrogen 17 mg/dL (7-23) Creatinine 0.9 mg/dL (0.7-1.2) Estimat Glomerular Filtration Rate mL/min (>60) Glucose Level 92 mg/dL (74-106) Calcium Level 9.2 mg/dL (8.6-10.2) Pro-B-Type Natriuretic Peptide 5357 pg/mL (0-125) H Microbiology Date/Time Source Procedure Growth Status 08/22/16 09:05 Wound Gram Stain - Final Resulted 08/22/16 09:05 Wound Wound Culture - Preliminary NO GROWTH AFTER 48 HOURS Resulted 08/22/16 09:05 Nasal Nares MRSA Culture - Final NO METHICILLIN RESISTANT STAPH AUREUS... Complete 08/22/16 09:05 Rectum VRE Culture - Final NO VANCOMYCIN RESISTANT ENTEROCOCCUS ... Complete Intake and Output 08/23/16 08/24/16 18:59 06:59 Intake Total 1255.000 ml 120 ml Output Total 300 ml 550 ml Balance 955.000 ml -430 ml Intake Oral 980 ml 120 ml IV Total 275.000 ml Output Urine Total 300 ml 550 ml Drainage Total 0 ml # Voids 3 4 # Bowel Movements 3 1 Assessment/Plan Problem List: (1) CAD (coronary artery disease) (2) CHF (congestive heart failure) Assessment & Plan: See cardiology note. (3) Cardiomyopathy (4) Peripheral vascular disease (5) HTN (hypertension) Assessment & Plan: Continue norvasc. (6) Hypercholesteremia Assessment & Plan: Continue lipitor. (7) Anemia Assessment & Plan: S/P transfusion 2 units PRBC. 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 Continue vanco and cefepime per ID. D/C zosyn. Await plastic surgery consult-Dr Andrade Status: not improved RANCHO GARDUNO Aug 24, 2016 11:18
[2016-08-24 11:47] VITALS: BP 140/70
--- NOTE | 2016-08-24 12:10 | Diagnostic Imaging Report ---
Indication: Pain Findings: 2 views of the left femur were obtained. Amputation at the subtrochanteric aspect of the left femur noted. This appears unremarkable. There is no evidence of focal erosion, periostitis, soft tissue air to suggest infection on the basis of plain x-ray. Please correlate clinically. Extensive vascular calcifications are noted. Impression: Left femur amputation stump. No plain film evidence for osteomyelitis. Consider MRI.
--- NOTE | 2016-08-24 12:37 | Diagnostic Imaging Report ---
Indication: Dyspnea Comparison: None A single view chest radiograph was obtained. Findings: No definite infiltrate or pulmonary vascular congestion identified. Sternotomy and pacemaker are noted. A PICC line is in good position with the tip in the SVC. The heart is enlarged. The aorta is mildly enlarged consistent with atherosclerotic vascular disease. The bones are osteopenic. Impression: No acute disease
[2016-08-24 16:00] VITALS: BP 155/71
--- NOTE | 2016-08-24 16:32 | Pulmonology Progress Note ---
Assessment/Plan Problems: (1) Sepsis (2) AKA stump complication (3) ARF (acute renal failure) (4) HTN (hypertension) (5) Cardiomyopathy (6) ICD (implantable cardioverter-defibrillator) in place (7) CAD (coronary artery disease) Assessment/Plan IV antibiotics wound care, continue pneumovac check cultures anemia w/u Subjective ROS Limited/Unobtainable: No Interval Events: doing better, no new complains Allergies: Coded Allergies: No Known Allergies (Unverified , 08/22/16) Objective Last 24 Hour Vital Signs Date Time Temp Pulse Resp B/P Pulse Ox O2 Delivery O2 Flow Rate FiO2 08/24/16 11:47 97.5 73 20 140/70 95 Room Air 08/24/16 09:11 68 150/60 08/24/16 09:10 68 150/60 08/24/16 07:59 97.9 68 20 150/60 96 Room Air 08/24/16 07:21 73 18 Room Air 08/24/16 04:00 97.5 70 18 148/79 97 Room Air 08/24/16 00:00 97.9 75 18 139/64 96 Room Air 08/23/16 21:54 76 18 Room Air 08/23/16 21:21 77 131/76 08/23/16 20:00 98.2 65 20 108/58 99 Nasal Cannula 2.0 Intake and Output 08/23/16 08/24/16 19:00 07:00 Intake Total 1255.000 ml 120 ml Output Total 300 ml 550 ml Balance 955.000 ml -430 ml Intake Oral 980 ml 120 ml IV Total 275.000 ml Output Urine Total 300 ml 550 ml Drainage Total 0 ml # Voids 3 4 # Bowel Movements 3 1 HEENT: normocephalic Respiratory/Chest: chest wall non-tender, lungs clear Cardiovascular: normal peripheral pulses, normal rate Abdomen: normal bowel sounds, soft, non tender Extremities: no cyanosis, no clubbing Skin: no ulcers 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 Complete 08/22/16 09:05 Rectum VRE Culture - Final NO VANCOMYCIN RESISTANT ENTEROCOCCUS ... Complete Laboratory Tests 08/24/16 04:20: White Blood Count 11.8H, Red Blood Count 3.23L, Hemoglobin 10.1L, Hematocrit 31.4L, Mean Corpuscular Volume 97, Mean Corpuscular Hemoglobin 31.4H, Mean Corpuscular Hemoglobin Concent 32.2, Red Cell Distribution Width 17.7H, Platelet Count 263, Mean Platelet Volume 7.6, Neutrophils (%) (Auto) 65.6, Lymphocytes (%) (Auto) 24.0, Monocytes (%) (Auto) 7.7, Eosinophils (%) (Auto) 2.1, Basophils (%) (Auto) 0.7, Sodium Level 138, Potassium Level 4.4, Chloride Level 105, Carbon Dioxide Level 23, Anion Gap 10, Blood Urea Nitrogen 17, Creatinine 0.9, Estimat Glomerular Filtration Rate , Glucose Level 92, Calcium Level 9.2, Pro-B-Type Natriuretic Peptide 5357H Current Medications Medications (Trade) Dose Ordered Sig/Sis Route PRN Reason Start Time Stop Time Status Last Admin Dose Admin Acetaminophen (Tylenol) 650 mg Q4H PRN ORAL fever 08/22/16 09:45 09/21/16 09:44 Al Hydroxide/Mg Hydroxide (Mylanta II) 30 ml Q6H PRN ORAL dyspepsia 08/22/16 09:45 09/21/16 09:44 Albuterol/ Ipratropium (DuoNeb 0.5-3(2.5)mg/3ml) 3 ml Q4H PRN HHN Shortness of Breath 08/22/16 18:15 08/27/16 18:14 Amlodipine Besylate (Norvasc) 5 mg DAILY ORAL 08/23/16 09:00 09/22/16 08:59 08/24/16 09:11 Atorvastatin Calcium (Lipitor) 20 mg BEDTIME ORAL 08/22/16 21:00 09/21/16 20:59 08/23/16 21:21 Carvedilol (Coreg) 12.5 mg EVERY 12 HOURS ORAL 08/22/16 21:00 09/21/16 20:59 08/24/16 09:10 Cefepime HCl 1 gm/ Dextrose 55 ml @ 110 mls/hr Q24H IV 08/22/16 16:00 08/29/16 15:59 08/23/16 16:19 Dextrose (Dextrose 50%) STAT PRN IV Hypoglycemia 08/22/16 09:45 09/21/16 09:44 Lorazepam (Ativan 2mg/ml 1ml) 0.5 mg Q4H PRN IV For Anxiety 08/22/16 09:45 08/29/16 09:44 Morphine Sulfate (Morphine Sulfate) 1 mg Q4H PRN IVP For Pain 08/22/16 09:45 08/29/16 09:44 08/23/16 00:36 Ondansetron HCl (Zofran) 4 mg Q6H PRN IVP Nausea & Vomiting 08/22/16 09:45 09/21/16 09:44 Polyethylene Glycol (Miralax) 17 gm HSPRN PRN ORAL Constipation 08/22/16 09:45 09/21/16 09:44 Vancomycin HCl 1 ea 1 ea DAILY PRN MISC Per rx protocol 08/22/16 09:45 09/21/16 09:44 Vancomycin HCl/ Dextrose (Vancomycin/D5W) 275 ml @ 183.708 mls/hr Q24H IVPB 08/23/16 09:00 08/28/16 08:59 08/24/16 09:10 Zolpidem Tartrate (Ambien) 5 mg HSPRN PRN ORAL Insomnia 08/22/16 09:45 09/21/16 09:44 WINDY DUFF Aug 24, 2016 16:32
[2016-08-24] MEDS: Cefepime HCl 1 GM in D5W 55 ML IV SCH (16:37)
[2016-08-24 19:00] VITALS: BP 153/74
[2016-08-24] MEDS: Atorvastatin 20mg tab ORAL SCH (21:28)
[2016-08-25] VITALS: BP 151/60
[2016-08-25 07:17] LABS: ANION GAP 15 (5-15); CALCIUM 8.8 mg/dL (8.6-10.2); CARBON DIOXIDE 21 mEQ/L (20-30); CHLORIDE 101 mEQ/L (98-107); CREATININE 0.9 mg/dL (0.7-1.2); HEMOLYSIS 13; POTASSIUM 4.1 mEQ/L (3.4-4.9); SODIUM 137 mEQ/L (135-145)
[2016-08-25 07:34] LABS: BASOPHILS % (AUTO) 0.6 % (0.0-2.0); EOSINOPHILS % (AUTO) 1.9 % (0.0-3.0); LYMPHOCYTES % (AUTO) 23.8 % (20.0-45.0); MEAN CORPUSCULAR HGB CONC 32.4 G/DL (32.0-36.0); MEAN CORPUSCULAR VOLUME 99 FL (80-99); MEAN PLATELET VOLUME 7.8 FL (6.5-10.1); MONOCYTES % (AUTO) 7.2 % (1.0-10.0); NEUTROPHILS % (AUTO) 66.5 % (45.0-75.0); PLATELET COUNT 266 K/UL (150-450); RED BLOOD COUNT 3.18 M/UL (4.70-6.10); RED CELL DISTRIBUTION WIDTH 18.4 % (11.6-14.8); WHITE BLOOD COUNT 9.4 K/UL (4.8-10.8)
[2016-08-25 08:12] VITALS: BP 134/74
[2016-08-25] MEDS: Carvedilol 12.5mg tab ORAL SCH ×2 (08:23→20:47)
--- NOTE | 2016-08-25 09:01 | Infectious Diseases Prog Note ---
Assessment/Plan Assessment/Plan A: The patient is a 71-year-old Leukocytosis , SP Infected left foot stump. Wnd c x 08/16 Serratia and PSA, SP gangrene of left lower extremity SP AKA PVD CAD COPD HTN HLD Depression P: Continue with cefepime and vancomycin d# 3 Monitor CBC Monitor BMP Monitor Cultures ( Wnd ) wound care Vasc Sx following Subjective Constitutional: Denies: anorexia, chills, drenching sweats, fatigue, fever, no symptoms, other Allergies: Coded Allergies: No Known Allergies (Unverified , 08/22/16) Objective Vital Signs Last 24 Hour Vital Signs Date Time Temp Pulse Resp B/P Pulse Ox O2 Delivery O2 Flow Rate FiO2 08/25/16 08:23 84 134/74 08/25/16 08:23 84 134/74 08/25/16 08:12 97.2 84 15 134/74 98 Room Air 08/25/16 07:52 83 16 Room Air 21 08/25/16 00:00 98.2 65 18 151/60 96 Room Air 08/24/16 21:27 71 153/74 08/24/16 19:00 98.1 71 20 153/74 97 Room Air 08/24/16 18:35 71 20 Room Air 2.0 21 08/24/16 16:00 98.6 71 20 155/71 96 Room Air 08/24/16 11:47 97.5 73 20 140/70 95 Room Air 08/24/16 09:11 68 150/60 08/24/16 09:10 68 150/60 Height (Feet): 5 Height (Inches): 7.72 Weight (Pounds): 140 HEENT: anicteric Respiratory/Chest: normal breath sounds Cardiovascular: normal rate Abdomen: non distended Microbiology Date/Time Source Procedure Growth Status 08/22/16 09:05 Wound Gram Stain - Final Resulted 08/22/16 09:05 Wound Wound Culture - Preliminary NO GROWTH AFTER 48 HOURS Resulted 08/22/16 09:05 Nasal Nares MRSA Culture - Final NO METHICILLIN RESISTANT STAPH AUREUS... Complete 08/22/16 09:05 Rectum VRE Culture - Final NO VANCOMYCIN RESISTANT ENTEROCOCCUS ... Complete Laboratory Tests Test 08/25/16 06:30 White Blood Count 9.4 K/UL (4.8-10.8) Red Blood Count 3.18 M/UL (4.70-6.10) L Hemoglobin 10.2 G/DL (14.2-18.0) L Hematocrit 31.3 % (42.0-52.0) L Mean Corpuscular Volume 99 FL (80-99) Mean Corpuscular Hemoglobin 32.0 PG (27.0-31.0) H Mean Corpuscular Hemoglobin Concent 32.4 G/DL (32.0-36.0) Red Cell Distribution Width 18.4 % (11.6-14.8) H Platelet Count 266 K/UL (150-450) Mean Platelet Volume 7.8 FL (6.5-10.1) Neutrophils (%) (Auto) 66.5 % (45.0-75.0) Lymphocytes (%) (Auto) 23.8 % (20.0-45.0) Monocytes (%) (Auto) 7.2 % (1.0-10.0) Eosinophils (%) (Auto) 1.9 % (0.0-3.0) Basophils (%) (Auto) 0.6 % (0.0-2.0) Sodium Level 137 mEQ/L (135-145) Potassium Level 4.1 mEQ/L (3.4-4.9) Chloride Level 101 mEQ/L (98-107) Carbon Dioxide Level 21 mEQ/L (20-30) Anion Gap 15 (5-15) Blood Urea Nitrogen 15 mg/dL (7-23) Creatinine 0.9 mg/dL (0.7-1.2) Estimat Glomerular Filtration Rate mL/min (>60) Glucose Level 90 mg/dL (74-106) Calcium Level 8.8 mg/dL (8.6-10.2) Current Medications Medications (Trade) Dose Ordered Sig/Sis Route PRN Reason Start Time Stop Time Status Last Admin Dose Admin Acetaminophen (Tylenol) 650 mg Q4H PRN ORAL fever 08/22/16 09:45 09/21/16 09:44 Al Hydroxide/Mg Hydroxide (Mylanta II) 30 ml Q6H PRN ORAL dyspepsia 08/22/16 09:45 09/21/16 09:44 Albuterol/ Ipratropium (DuoNeb 0.5-3(2.5)mg/3ml) 3 ml Q4H PRN HHN Shortness of Breath 08/22/16 18:15 08/27/16 18:14 Amlodipine Besylate (Norvasc) 5 mg DAILY ORAL 08/23/16 09:00 09/22/16 08:59 08/25/16 08:23 Atorvastatin Calcium (Lipitor) 20 mg BEDTIME ORAL 08/22/16 21:00 09/21/16 20:59 08/24/16 21:28 Carvedilol (Coreg) 12.5 mg EVERY 12 HOURS ORAL 08/22/16 21:00 09/21/16 20:59 08/25/16 08:23 Cefepime HCl 1 gm/ Dextrose 55 ml @ 110 mls/hr Q24H IV 08/22/16 16:00 08/29/16 15:59 08/24/16 16:37 Dextrose (Dextrose 50%) STAT PRN IV Hypoglycemia 08/22/16 09:45 09/21/16 09:44 Lorazepam (Ativan 2mg/ml 1ml) 0.5 mg Q4H PRN IV For Anxiety 08/22/16 09:45 08/29/16 09:44 Morphine Sulfate (Morphine Sulfate) 1 mg Q4H PRN IVP For Pain 08/22/16 09:45 08/29/16 09:44 08/23/16 00:36 Ondansetron HCl (Zofran) 4 mg Q6H PRN IVP Nausea & Vomiting 08/22/16 09:45 09/21/16 09:44 Polyethylene Glycol (Miralax) 17 gm HSPRN PRN ORAL Constipation 08/22/16 09:45 09/21/16 09:44 Vancomycin HCl 1 ea 1 ea DAILY PRN MISC Per rx protocol 08/22/16 09:45 09/21/16 09:44 Vancomycin HCl/ Dextrose (Vancomycin/D5W) 275 ml @ 183.708 mls/hr Q24H IVPB 08/23/16 09:00 08/28/16 08:59 08/24/16 09:10 Zolpidem Tartrate (Ambien) 5 mg HSPRN PRN ORAL Insomnia 08/22/16 09:45 09/21/16 09:44 JACK PATTERSON M.D. Aug 25, 2016 09:01
[2016-08-25] MEDS: Vancomycin 1gm/D5W 275ml IVPB SCH ×2 (09:52)
[2016-08-25 11:32] VITALS: BP 149/60
[2016-08-25 16:00] VITALS: BP 148/69
[2016-08-25] MEDS: Cefepime HCl 1 GM in D5W 55 ML IV SCH (16:17)
--- NOTE | 2016-08-25 17:42 | Internal Med Progress Note ---
Subjective Date of Service: Aug 25, 2016 Physician Name Rancho Garduno Attending Physician Fritz Barry MD Current Medications Medications (Trade) Dose Ordered Sig/Sis Route PRN Reason Start Time Stop Time Status Last Admin Dose Admin Acetaminophen (Tylenol) 650 mg Q4H PRN ORAL fever 08/22/16 09:45 09/21/16 09:44 Al Hydroxide/Mg Hydroxide (Mylanta II) 30 ml Q6H PRN ORAL dyspepsia 08/22/16 09:45 09/21/16 09:44 Albuterol/ Ipratropium (DuoNeb 0.5-3(2.5)mg/3ml) 3 ml Q4H PRN HHN Shortness of Breath 08/22/16 18:15 08/27/16 18:14 Amlodipine Besylate (Norvasc) 5 mg DAILY ORAL 08/23/16 09:00 09/22/16 08:59 08/25/16 08:23 Atorvastatin Calcium (Lipitor) 20 mg BEDTIME ORAL 08/22/16 21:00 09/21/16 20:59 08/24/16 21:28 Carvedilol (Coreg) 12.5 mg EVERY 12 HOURS ORAL 08/22/16 21:00 09/21/16 20:59 08/25/16 08:23 Cefepime HCl 1 gm/ Dextrose 55 ml @ 110 mls/hr Q24H IV 08/22/16 16:00 08/29/16 15:59 08/25/16 16:17 Dextrose (Dextrose 50%) STAT PRN IV Hypoglycemia 08/22/16 09:45 09/21/16 09:44 Lorazepam (Ativan 2mg/ml 1ml) 0.5 mg Q4H PRN IV For Anxiety 08/22/16 09:45 08/29/16 09:44 Morphine Sulfate (Morphine Sulfate) 1 mg Q4H PRN IVP For Pain 08/22/16 09:45 08/29/16 09:44 08/23/16 00:36 Ondansetron HCl (Zofran) 4 mg Q6H PRN IVP Nausea & Vomiting 08/22/16 09:45 09/21/16 09:44 Polyethylene Glycol (Miralax) 17 gm HSPRN PRN ORAL Constipation 08/22/16 09:45 09/21/16 09:44 Vancomycin HCl 1 ea 1 ea DAILY PRN MISC Per rx protocol 08/22/16 09:45 09/21/16 09:44 Vancomycin HCl/ Dextrose (Vancomycin/D5W) 275 ml @ 183.708 mls/hr Q24H IVPB 08/23/16 09:00 08/28/16 08:59 08/25/16 09:52 Zolpidem Tartrate (Ambien) 5 mg HSPRN PRN ORAL Insomnia 08/22/16 09:45 09/21/16 09:44 Allergies: Coded Allergies: No Known Allergies (Unverified , 08/22/16) ROS Limited/Unobtainable: No Constitutional: Reports: no symptoms HEENT: Reports: no symptoms Cardiovascular: Reports: no symptoms Respiratory: Reports: no symptoms Gastrointestinal/Abdominal: Reports: no symptoms Genitourinary: Reports: no symptoms Neurologic/Psychiatric: Reports: no symptoms Subjective 71 YO M admitted with anemia and left AKA infection. Cover for Int Michael-Dr Barry. Await plastic surgery consult and bone scan. Objective Last Vital Signs Date Time Temp Pulse Resp B/P Pulse Ox O2 Delivery O2 Flow Rate FiO2 08/25/16 11:32 97.7 60 15 149/60 99 Room Air 08/25/16 07:52 21 08/24/16 18:35 2.0 Laboratory Tests Test 08/25/16 06:30 08/25/16 08:15 White Blood Count 9.4 K/UL (4.8-10.8) Red Blood Count 3.18 M/UL (4.70-6.10) L Hemoglobin 10.2 G/DL (14.2-18.0) L Hematocrit 31.3 % (42.0-52.0) L Mean Corpuscular Volume 99 FL (80-99) Mean Corpuscular Hemoglobin 32.0 PG (27.0-31.0) H Mean Corpuscular Hemoglobin Concent 32.4 G/DL (32.0-36.0) Red Cell Distribution Width 18.4 % (11.6-14.8) H Platelet Count 266 K/UL (150-450) Mean Platelet Volume 7.8 FL (6.5-10.1) Neutrophils (%) (Auto) 66.5 % (45.0-75.0) Lymphocytes (%) (Auto) 23.8 % (20.0-45.0) Monocytes (%) (Auto) 7.2 % (1.0-10.0) Eosinophils (%) (Auto) 1.9 % (0.0-3.0) Basophils (%) (Auto) 0.6 % (0.0-2.0) Sodium Level 137 mEQ/L (135-145) Potassium Level 4.1 mEQ/L (3.4-4.9) Chloride Level 101 mEQ/L (98-107) Carbon Dioxide Level 21 mEQ/L (20-30) Anion Gap 15 (5-15) Blood Urea Nitrogen 15 mg/dL (7-23) Creatinine 0.9 mg/dL (0.7-1.2) Estimat Glomerular Filtration Rate mL/min (>60) Glucose Level 90 mg/dL (74-106) Calcium Level 8.8 mg/dL (8.6-10.2) Vancomycin Level Trough 10.3 ug/mL (5.0-12.0) Intake and Output 08/24/16 08/25/16 19:00 07:00 Intake Total 995 ml 240 ml Output Total 300 ml 475 ml Balance 695 ml -235 ml Intake Oral 720 ml 240 ml IV Total 275 ml Output Urine Total 300 ml 475 ml Drainage Total 0 ml 0 ml # Voids 1 3 # Bowel Movements 3 3 Objective General Appearance: WD/WN, no apparent distress, alert EENT: PERRL/EOMI, normal ENT inspection Neck: non-tender, normal alignment, supple, normal inspection Cardiovascular: normal peripheral pulses, normal rate, regular rhythm, no gallop/murmur, no JVD Respiratory/Chest: chest wall non-tender, lungs clear, normal breath sounds, no respiratory distress, no accessory muscle use Abdomen: normal bowel sounds, non tender, soft, no organomegaly, no mass Extremities: normal range of motion, non-tender 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 (3) Cardiomyopathy (4) Peripheral vascular disease (5) HTN (hypertension) Assessment & Plan: Continue norvasc. (6) Hypercholesteremia Assessment & Plan: Continue lipitor. (7) Anemia Assessment & Plan: S/P transfusion 2 units PRBC. 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 Continue vanco and cefepime per ID. D/C zosyn. Await plastic surgery consult-Dr Devi Status: not improved RANCHO GARDUNO Aug 25, 2016 17:42
[2016-08-25 20:00] VITALS: BP 145/66
[2016-08-25] MEDS: Atorvastatin 20mg tab ORAL SCH (20:46)
--- NOTE | 2016-08-25 23:03 | Pulmonology Progress Note ---
Assessment/Plan Problems: (1) Sepsis (2) AKA stump complication (3) ARF (acute renal failure) (4) HTN (hypertension) (5) Cardiomyopathy (6) ICD (implantable cardioverter-defibrillator) in place (7) CAD (coronary artery disease) Assessment/Plan IV antibiotics wound care, continue pneumovac check cultures anemia w/u orders from Dr. Gamboa noted check electroltyes Subjective ROS Limited/Unobtainable: No Interval Events: sitting up on the chair Allergies: Coded Allergies: No Known Allergies (Unverified , 08/22/16) Objective Last 24 Hour Vital Signs Date Time Temp Pulse Resp B/P Pulse Ox O2 Delivery O2 Flow Rate FiO2 08/25/16 20:47 75 148/69 08/25/16 20:35 75 18 Room Air 21 08/25/16 20:00 98.6 70 16 145/66 96 Room Air 08/25/16 16:00 98.1 71 16 148/69 97 Room Air 08/25/16 11:32 97.7 60 15 149/60 99 Room Air 08/25/16 08:23 84 134/74 08/25/16 08:23 84 134/74 08/25/16 08:12 97.2 84 15 134/74 98 Room Air 08/25/16 07:52 83 16 Room Air 21 08/25/16 00:00 98.2 65 18 151/60 96 Room Air Intake and Output 08/24/16 08/25/16 19:00 07:00 Intake Total 995 ml 240 ml Output Total 300 ml 475 ml Balance 695 ml -235 ml Intake Oral 720 ml 240 ml IV Total 275 ml Output Urine Total 300 ml 475 ml Drainage Total 0 ml 0 ml # Voids 1 3 # Bowel Movements 3 3 Objective HEENT: normocephalic Respiratory/Chest: chest wall non-tender, lungs clear Cardiovascular: normal peripheral pulses, normal rate Abdomen: normal bowel sounds, soft, non tender Extremities: no cyanosis, no clubbing Skin: no ulcers 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 Musculoskeletal: normal muscle bulk, other - wound vac attached to Left leg stump Laboratory Tests 08/25/16 06:30: White Blood Count 9.4, Red Blood Count 3.18L, Hemoglobin 10.2L, Hematocrit 31.3L , Mean Corpuscular Volume 99, Mean Corpuscular Hemoglobin 32.0H, Mean Corpuscular Hemoglobin Concent 32.4, Red Cell Distribution Width 18.4H, Platelet Count 266, Mean Platelet Volume 7.8, Neutrophils (%) (Auto) 66.5, Lymphocytes (%) (Auto) 23.8, Monocytes (%) (Auto) 7.2, Eosinophils (%) (Auto) 1.9, Basophils (%) (Auto) 0.6, Sodium Level 137, Potassium Level 4.1, Chloride Level 101, Carbon Dioxide Level 21, Anion Gap 15, Blood Urea Nitrogen 15, Creatinine 0.9, Estimat Glomerular Filtration Rate , Glucose Level 90, Calcium Level 8.8 08/25/16 08:15: Vancomycin Level Trough 10.3 Current Medications Medications (Trade) Dose Ordered Sig/Sis Route PRN Reason Start Time Stop Time Status Last Admin Dose Admin Acetaminophen (Tylenol) 650 mg Q4H PRN ORAL fever 08/22/16 09:45 09/21/16 09:44 Al Hydroxide/Mg Hydroxide (Mylanta II) 30 ml Q6H PRN ORAL dyspepsia 08/22/16 09:45 09/21/16 09:44 Albuterol/ Ipratropium (DuoNeb 0.5-3(2.5)mg/3ml) 3 ml Q4H PRN HHN Shortness of Breath 08/22/16 18:15 08/27/16 18:14 Amlodipine Besylate (Norvasc) 5 mg DAILY ORAL 08/23/16 09:00 09/22/16 08:59 08/25/16 08:23 Atorvastatin Calcium (Lipitor) 20 mg BEDTIME ORAL 08/22/16 21:00 09/21/16 20:59 08/25/16 20:46 Carvedilol (Coreg) 12.5 mg EVERY 12 HOURS ORAL 08/22/16 21:00 09/21/16 20:59 08/25/16 20:47 Cefepime HCl 1 gm/ Dextrose 55 ml @ 110 mls/hr Q24H IV 08/22/16 16:00 08/29/16 15:59 08/25/16 16:17 Dextrose (Dextrose 50%) STAT PRN IV Hypoglycemia 08/22/16 09:45 09/21/16 09:44 Lorazepam (Ativan 2mg/ml 1ml) 0.5 mg Q4H PRN IV For Anxiety 08/22/16 09:45 08/29/16 09:44 Morphine Sulfate (Morphine Sulfate) 1 mg Q4H PRN IVP For Pain 08/22/16 09:45 08/29/16 09:44 08/23/16 00:36 Ondansetron HCl (Zofran) 4 mg Q6H PRN IVP Nausea & Vomiting 08/22/16 09:45 09/21/16 09:44 Polyethylene Glycol (Miralax) 17 gm HSPRN PRN ORAL Constipation 08/22/16 09:45 09/21/16 09:44 Vancomycin HCl 1 ea 1 ea DAILY PRN MISC Per rx protocol 08/22/16 09:45 09/21/16 09:44 Vancomycin HCl/ Dextrose (Vancomycin/D5W) 275 ml @ 183.708 mls/hr Q24H IVPB 08/23/16 09:00 08/28/16 08:59 08/25/16 09:52 Zolpidem Tartrate (Ambien) 5 mg HSPRN PRN ORAL Insomnia 08/22/16 09:45 09/21/16 09:44 WINDY DUFF Aug 25, 2016 23:03
[2016-08-26] VITALS: BP 149/72
[2016-08-26 04:00] VITALS: BP 134/61
[2016-08-26 07:42] LABS: BASOPHILS % (AUTO) 0.4 % (0.0-2.0); EOSINOPHILS % (AUTO) 2.5 % (0.0-3.0); LYMPHOCYTES % (AUTO) 23.7 % (20.0-45.0); MEAN CORPUSCULAR HEMOGLOBIN 31.9 PG (27.0-31.0); MEAN CORPUSCULAR HGB CONC 32.2 G/DL (32.0-36.0); MEAN CORPUSCULAR VOLUME 99 FL (80-99); MEAN PLATELET VOLUME 6.8 FL (6.5-10.1); MONOCYTES % (AUTO) 7.7 % (1.0-10.0); NEUTROPHILS % (AUTO) 65.7 % (45.0-75.0); PLATELET COUNT 266 K/UL (150-450); RED BLOOD COUNT 3.24 M/UL (4.70-6.10); RED CELL DISTRIBUTION WIDTH 17.4 % (11.6-14.8); WHITE BLOOD COUNT 8.2 K/UL (4.8-10.8)
[2016-08-26 07:59] VITALS: BP 143/68
[2016-08-26 08:03] LABS: ANION GAP 14 (5-15); CALCIUM 9.3 mg/dL (8.6-10.2); CARBON DIOXIDE 23 mEQ/L (20-30); CHLORIDE 100 mEQ/L (98-107); CREATININE 0.9 mg/dL (0.7-1.2); HEMOLYSIS 2; POTASSIUM 4.4 mEQ/L (3.4-4.9); SODIUM 137 mEQ/L (135-145)
[2016-08-26] MEDS: Vancomycin 1gm/D5W 275ml IVPB SCH ×2 (08:31)
[2016-08-26] MEDS: Carvedilol 12.5mg tab ORAL SCH ×2 (08:31→20:52)
[2016-08-26] MEDS: Morphine Sulfate 2mg/ml Inj IVP PRN (09:28)
--- NOTE | 2016-08-26 09:30 | General Progress Note ---
Progress Note Progress Note Dictated consult to follow Admitted with anemia CHF EF <30% Occluded left iliac femorals wit hx of occluded left axillofem bypass s/p Left AKA with 2 incisional wounds+ AICD PAD Smoker HTN Rec: Left AKA wound care with wound vac and change q48hrs Plastic surgery eval f/u Abx per ID (prior wound cultures showed Pseudomona) Ok for d/c planning once medically cleared d/w pt at length d/w RN at bedside DEWAYNE JONES Aug 26, 2016 09:30
[2016-08-26 12:15] VITALS: BP 139/60
--- NOTE | 2016-08-26 13:10 | Internal Med Progress Note ---
Subjective Date of Service: Aug 26, 2016 Physician Name Rancho Garduno Attending Physician Fritz Barry MD Current Medications Medications (Trade) Dose Ordered Sig/Sis Route PRN Reason Start Time Stop Time Status Last Admin Dose Admin Acetaminophen (Tylenol) 650 mg Q4H PRN ORAL fever 08/22/16 09:45 09/21/16 09:44 Al Hydroxide/Mg Hydroxide (Mylanta II) 30 ml Q6H PRN ORAL dyspepsia 08/22/16 09:45 09/21/16 09:44 Albuterol/ Ipratropium (DuoNeb 0.5-3(2.5)mg/3ml) 3 ml Q4H PRN HHN Shortness of Breath 08/22/16 18:15 08/27/16 18:14 Amlodipine Besylate (Norvasc) 5 mg DAILY ORAL 08/23/16 09:00 09/22/16 08:59 08/26/16 08:31 Atorvastatin Calcium (Lipitor) 20 mg BEDTIME ORAL 08/22/16 21:00 09/21/16 20:59 08/25/16 20:46 Carvedilol (Coreg) 12.5 mg EVERY 12 HOURS ORAL 08/22/16 21:00 09/21/16 20:59 08/26/16 08:31 Cefepime HCl 1 gm/ Dextrose 55 ml @ 110 mls/hr Q24H IV 08/22/16 16:00 08/29/16 15:59 08/25/16 16:17 Dextrose (Dextrose 50%) STAT PRN IV Hypoglycemia 08/22/16 09:45 09/21/16 09:44 Lorazepam (Ativan 2mg/ml 1ml) 0.5 mg Q4H PRN IV For Anxiety 08/22/16 09:45 08/29/16 09:44 Morphine Sulfate (Morphine Sulfate) 1 mg Q4H PRN IVP For Pain 08/22/16 09:45 08/29/16 09:44 08/26/16 09:28 Ondansetron HCl (Zofran) 4 mg Q6H PRN IVP Nausea & Vomiting 08/22/16 09:45 09/21/16 09:44 Polyethylene Glycol (Miralax) 17 gm HSPRN PRN ORAL Constipation 08/22/16 09:45 09/21/16 09:44 Vancomycin HCl 1 ea 1 ea DAILY PRN MISC Per rx protocol 08/22/16 09:45 09/21/16 09:44 Vancomycin HCl/ Dextrose (Vancomycin/D5W) 275 ml @ 183.708 mls/hr Q24H IVPB 08/23/16 09:00 08/28/16 08:59 08/26/16 08:31 Zolpidem Tartrate (Ambien) 5 mg HSPRN PRN ORAL Insomnia 08/22/16 09:45 09/21/16 09:44 Allergies: Coded Allergies: No Known Allergies (Unverified , 08/22/16) ROS Limited/Unobtainable: No Constitutional: Reports: no symptoms HEENT: Reports: no symptoms Cardiovascular: Reports: no symptoms Respiratory: Reports: no symptoms Gastrointestinal/Abdominal: Reports: no symptoms Genitourinary: Reports: no symptoms Neurologic/Psychiatric: Reports: no symptoms Subjective 71 YO M admitted with anemia and left AKA infection. Cover for Int Michael-Dr Barry. Await plastic surgery consult and bone scan. Objective Last Vital Signs Date Time Temp Pulse Resp B/P Pulse Ox O2 Delivery O2 Flow Rate FiO2 08/26/16 12:15 97.9 61 19 139/60 97 Room Air 08/26/16 08:30 21 08/24/16 18:35 2.0 Laboratory Tests Test 08/26/16 07:00 White Blood Count 8.2 K/UL (4.8-10.8) Red Blood Count 3.24 M/UL (4.70-6.10) L Hemoglobin 10.3 G/DL (14.2-18.0) L Hematocrit 32.0 % (42.0-52.0) L Mean Corpuscular Volume 99 FL (80-99) Mean Corpuscular Hemoglobin 31.9 PG (27.0-31.0) H Mean Corpuscular Hemoglobin Concent 32.2 G/DL (32.0-36.0) Red Cell Distribution Width 17.4 % (11.6-14.8) H Platelet Count 266 K/UL (150-450) Mean Platelet Volume 6.8 FL (6.5-10.1) Neutrophils (%) (Auto) 65.7 % (45.0-75.0) Lymphocytes (%) (Auto) 23.7 % (20.0-45.0) Monocytes (%) (Auto) 7.7 % (1.0-10.0) Eosinophils (%) (Auto) 2.5 % (0.0-3.0) Basophils (%) (Auto) 0.4 % (0.0-2.0) Sodium Level 137 mEQ/L (135-145) Potassium Level 4.4 mEQ/L (3.4-4.9) Chloride Level 100 mEQ/L (98-107) Carbon Dioxide Level 23 mEQ/L (20-30) Anion Gap 14 (5-15) Blood Urea Nitrogen 17 mg/dL (7-23) Creatinine 0.9 mg/dL (0.7-1.2) Estimat Glomerular Filtration Rate mL/min (>60) Glucose Level 84 mg/dL (74-106) Calcium Level 9.3 mg/dL (8.6-10.2) Intake and Output 08/25/16 08/26/16 18:59 06:59 Intake Total 1000 ml 600 ml Output Total 400 ml 500 ml Balance 600 ml 100 ml Intake Oral 1000 ml 600 ml Output Urine Total 400 ml 500 ml # Voids 2 2 Objective General Appearance: WD/WN, no apparent distress, alert EENT: PERRL/EOMI, normal ENT inspection Neck: non-tender, normal alignment, supple, normal inspection Cardiovascular: normal peripheral pulses, normal rate, regular rhythm, no gallop/murmur, no JVD Respiratory/Chest: chest wall non-tender, lungs clear, normal breath sounds, no respiratory distress, no accessory muscle use Abdomen: normal bowel sounds, non tender, soft, no organomegaly, no mass Extremities: normal range of motion, non-tender 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 (3) Cardiomyopathy (4) Peripheral vascular disease Assessment & Plan: See vascular surgery note. (5) HTN (hypertension) Assessment & Plan: Continue norvasc. (6) Hypercholesteremia Assessment & Plan: Continue lipitor. (7) Anemia Assessment & Plan: S/P transfusion 2 units PRBC. 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 Continue vanco and cefepime per ID. D/C zosyn. Await plastic surgery consult-Dr Devi Status: not improved RANCHO GARDUNO Aug 26, 2016 13:10
--- NOTE | 2016-08-26 15:57 | Infectious Diseases Prog Note ---
Assessment/Plan Assessment/Plan A: The patient is a 71-year-old Leukocytosis , SP Infected left foot stump. 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 PVD CAD COPD HTN HLD Depression P: Continue with cefepime and vancomycin d# 4 / 10 Monitor CBC Monitor BMP Monitor Cultures ( Wnd ) wound care Vasc Sx following Subjective Constitutional: Denies: anorexia, chills, drenching sweats, fatigue, fever, no symptoms, other Allergies: Coded Allergies: No Known Allergies (Unverified , 08/22/16) Objective Vital Signs Last 24 Hour Vital Signs Date Time Temp Pulse Resp B/P Pulse Ox O2 Delivery O2 Flow Rate FiO2 08/26/16 12:15 97.9 61 19 139/60 97 Room Air 08/26/16 08:31 73 143/68 08/26/16 08:31 73 143/68 08/26/16 08:30 60 14 Room Air 21 08/26/16 07:59 98.0 73 20 143/68 97 Room Air 08/26/16 04:00 98.1 64 18 134/61 98 Room Air 08/26/16 00:00 96.8 62 18 149/72 98 Room Air 08/25/16 20:47 75 148/69 08/25/16 20:35 75 18 Room Air 21 08/25/16 20:00 98.6 70 16 145/66 96 Room Air 08/25/16 16:00 98.1 71 16 148/69 97 Room Air Height (Feet): 5 Height (Inches): 7.72 Weight (Pounds): 140 HEENT: anicteric Respiratory/Chest: normal breath sounds Cardiovascular: regularly irregular Abdomen: no organomegaly Laboratory Tests Test 08/26/16 07:00 White Blood Count 8.2 K/UL (4.8-10.8) Red Blood Count 3.24 M/UL (4.70-6.10) L Hemoglobin 10.3 G/DL (14.2-18.0) L Hematocrit 32.0 % (42.0-52.0) L Mean Corpuscular Volume 99 FL (80-99) Mean Corpuscular Hemoglobin 31.9 PG (27.0-31.0) H Mean Corpuscular Hemoglobin Concent 32.2 G/DL (32.0-36.0) Red Cell Distribution Width 17.4 % (11.6-14.8) H Platelet Count 266 K/UL (150-450) Mean Platelet Volume 6.8 FL (6.5-10.1) Neutrophils (%) (Auto) 65.7 % (45.0-75.0) Lymphocytes (%) (Auto) 23.7 % (20.0-45.0) Monocytes (%) (Auto) 7.7 % (1.0-10.0) Eosinophils (%) (Auto) 2.5 % (0.0-3.0) Basophils (%) (Auto) 0.4 % (0.0-2.0) Sodium Level 137 mEQ/L (135-145) Potassium Level 4.4 mEQ/L (3.4-4.9) Chloride Level 100 mEQ/L (98-107) Carbon Dioxide Level 23 mEQ/L (20-30) Anion Gap 14 (5-15) Blood Urea Nitrogen 17 mg/dL (7-23) Creatinine 0.9 mg/dL (0.7-1.2) Estimat Glomerular Filtration Rate mL/min (>60) Glucose Level 84 mg/dL (74-106) Calcium Level 9.3 mg/dL (8.6-10.2) Current Medications Medications (Trade) Dose Ordered Sig/Sis Route PRN Reason Start Time Stop Time Status Last Admin Dose Admin Acetaminophen (Tylenol) 650 mg Q4H PRN ORAL fever 08/22/16 09:45 09/21/16 09:44 Al Hydroxide/Mg Hydroxide (Mylanta II) 30 ml Q6H PRN ORAL dyspepsia 08/22/16 09:45 09/21/16 09:44 Albuterol/ Ipratropium (DuoNeb 0.5-3(2.5)mg/3ml) 3 ml Q4H PRN HHN Shortness of Breath 08/22/16 18:15 08/27/16 18:14 Amlodipine Besylate (Norvasc) 5 mg DAILY ORAL 08/23/16 09:00 09/22/16 08:59 08/26/16 08:31 Atorvastatin Calcium (Lipitor) 20 mg BEDTIME ORAL 08/22/16 21:00 09/21/16 20:59 08/25/16 20:46 Carvedilol (Coreg) 12.5 mg EVERY 12 HOURS ORAL 08/22/16 21:00 09/21/16 20:59 08/26/16 08:31 Cefepime HCl 1 gm/ Dextrose 55 ml @ 110 mls/hr Q24H IV 08/22/16 16:00 08/29/16 15:59 08/25/16 16:17 Dextrose (Dextrose 50%) STAT PRN IV Hypoglycemia 08/22/16 09:45 09/21/16 09:44 Lorazepam (Ativan 2mg/ml 1ml) 0.5 mg Q4H PRN IV For Anxiety 08/22/16 09:45 08/29/16 09:44 Morphine Sulfate (Morphine Sulfate) 1 mg Q4H PRN IVP For Pain 08/22/16 09:45 08/29/16 09:44 08/26/16 09:28 Ondansetron HCl (Zofran) 4 mg Q6H PRN IVP Nausea & Vomiting 08/22/16 09:45 09/21/16 09:44 Polyethylene Glycol (Miralax) 17 gm HSPRN PRN ORAL Constipation 08/22/16 09:45 09/21/16 09:44 Vancomycin HCl 1 ea 1 ea DAILY PRN MISC Per rx protocol 08/22/16 09:45 09/21/16 09:44 Vancomycin HCl/ Dextrose (Vancomycin/D5W) 275 ml @ 183.708 mls/hr Q24H IVPB 08/23/16 09:00 08/28/16 08:59 08/26/16 08:31 Zolpidem Tartrate (Ambien) 5 mg HSPRN PRN ORAL Insomnia 08/22/16 09:45 09/21/16 09:44 JACK PATTERSON M.D. Aug 26, 2016 15:57
[2016-08-26 16:00] VITALS: BP 140/55
--- NOTE | 2016-08-26 16:02 | Pulmonology Progress Note ---
Assessment/Plan Problems: (1) Sepsis (2) AKA stump complication (3) ARF (acute renal failure) (4) HTN (hypertension) (5) Cardiomyopathy (6) ICD (implantable cardioverter-defibrillator) in place (7) CAD (coronary artery disease) Assessment/Plan IV antibiotics wound care, continue pneumovac check cultures anemia w/u orders from Dr. Gamboa noted check electrolytes all meds/notes reviewed Subjective Interval Events: comfortable Allergies: Coded Allergies: No Known Allergies (Unverified , 08/22/16) Objective Last 24 Hour Vital Signs Date Time Temp Pulse Resp B/P Pulse Ox O2 Delivery O2 Flow Rate FiO2 08/26/16 12:15 97.9 61 19 139/60 97 Room Air 08/26/16 08:31 73 143/68 08/26/16 08:31 73 143/68 08/26/16 08:30 60 14 Room Air 21 08/26/16 07:59 98.0 73 20 143/68 97 Room Air 08/26/16 04:00 98.1 64 18 134/61 98 Room Air 08/26/16 00:00 96.8 62 18 149/72 98 Room Air 08/25/16 20:47 75 148/69 08/25/16 20:35 75 18 Room Air 21 08/25/16 20:00 98.6 70 16 145/66 96 Room Air Intake and Output 08/25/16 08/26/16 19:00 07:00 Intake Total 1000 ml 600 ml Output Total 400 ml 500 ml Balance 600 ml 100 ml Intake Oral 1000 ml 600 ml Output Urine Total 400 ml 500 ml # Voids 2 2 Objective HEENT: normocephalic Respiratory/Chest: chest wall non-tender, lungs clear Cardiovascular: normal peripheral pulses, normal rate Abdomen: normal bowel sounds, soft, non tender Extremities: no cyanosis, no clubbing Skin: no ulcers 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 Musculoskeletal: normal muscle bulk, other - wound vac attached to Left leg stump Laboratory Tests 08/26/16 07:00: White Blood Count 8.2, Red Blood Count 3.24L, Hemoglobin 10.3L, Hematocrit 32.0L , Mean Corpuscular Volume 99, Mean Corpuscular Hemoglobin 31.9H, Mean Corpuscular Hemoglobin Concent 32.2, Red Cell Distribution Width 17.4H, Platelet Count 266, Mean Platelet Volume 6.8, Neutrophils (%) (Auto) 65.7, Lymphocytes (%) (Auto) 23.7, Monocytes (%) (Auto) 7.7, Eosinophils (%) (Auto) 2.5, Basophils (%) (Auto) 0.4, Sodium Level 137, Potassium Level 4.4, Chloride Level 100, Carbon Dioxide Level 23, Anion Gap 14, Blood Urea Nitrogen 17, Creatinine 0.9, Estimat Glomerular Filtration Rate , Glucose Level 84, Calcium Level 9.3 Current Medications Medications (Trade) Dose Ordered Sig/Sis Route PRN Reason Start Time Stop Time Status Last Admin Dose Admin Acetaminophen (Tylenol) 650 mg Q4H PRN ORAL fever 08/22/16 09:45 09/21/16 09:44 Al Hydroxide/Mg Hydroxide (Mylanta II) 30 ml Q6H PRN ORAL dyspepsia 08/22/16 09:45 09/21/16 09:44 Albuterol/ Ipratropium (DuoNeb 0.5-3(2.5)mg/3ml) 3 ml Q4H PRN HHN Shortness of Breath 08/22/16 18:15 08/27/16 18:14 Amlodipine Besylate (Norvasc) 5 mg DAILY ORAL 08/23/16 09:00 09/22/16 08:59 08/26/16 08:31 Atorvastatin Calcium (Lipitor) 20 mg BEDTIME ORAL 08/22/16 21:00 09/21/16 20:59 08/25/16 20:46 Carvedilol (Coreg) 12.5 mg EVERY 12 HOURS ORAL 08/22/16 21:00 09/21/16 20:59 08/26/16 08:31 Cefepime HCl 1 gm/ Dextrose 55 ml @ 110 mls/hr Q24H IV 08/22/16 16:00 08/29/16 15:59 08/25/16 16:17 Dextrose (Dextrose 50%) STAT PRN IV Hypoglycemia 08/22/16 09:45 09/21/16 09:44 Lorazepam (Ativan 2mg/ml 1ml) 0.5 mg Q4H PRN IV For Anxiety 08/22/16 09:45 08/29/16 09:44 Morphine Sulfate (Morphine Sulfate) 1 mg Q4H PRN IVP For Pain 08/22/16 09:45 08/29/16 09:44 08/26/16 09:28 Ondansetron HCl (Zofran) 4 mg Q6H PRN IVP Nausea & Vomiting 08/22/16 09:45 09/21/16 09:44 Polyethylene Glycol (Miralax) 17 gm HSPRN PRN ORAL Constipation 08/22/16 09:45 09/21/16 09:44 Vancomycin HCl 1 ea 1 ea DAILY PRN MISC Per rx protocol 08/22/16 09:45 09/21/16 09:44 Vancomycin HCl/ Dextrose (Vancomycin/D5W) 275 ml @ 183.708 mls/hr Q24H IVPB 08/23/16 09:00 08/28/16 08:59 08/26/16 08:31 Zolpidem Tartrate (Ambien) 5 mg HSPRN PRN ORAL Insomnia 08/22/16 09:45 09/21/16 09:44 WINDY DUFF Aug 26, 2016 16:02
--- NOTE | 2016-08-26 16:34 | Diagnostic Imaging Report ---
Indication: Cellulitis Technique: 25.7 mCi of technetium 99 M-MDP was injected intravenously. A triple phase bone scan was then performed with blood flow, blood pool and delayed planar imaging in the region of interest. Several spot images were also obtained. Comparison: None Findings: . Left [id number]-[id number] amputation noted. The region of interest is the amputation site. Blood flow images show no increased blood flow to the left stump. In fact blood flow is preferentially increased to the right. This finding is suspect since there may be some alteration in vascular anatomy. There may be slightly increased uptake on blood pool imaging in the area of the left stump. Delayed planar images show mild increased uptake as well. Findings are equivocal for osteomyelitis. Impression: Equivocal findings for osteomyelitis involving the left proximal femoral stump, but doubtful. Consider MRI for further evaluation.
[2016-08-26] MEDS: Cefepime HCl 1 GM in D5W 55 ML IV SCH (17:34)
[2016-08-26] MEDS: Atorvastatin 20mg tab ORAL SCH (20:52)
--- NOTE | 2016-08-26 23:37 | Wound Care Consultation ---
Wound Assessment Wound Assessment : Wound Present on Admission: Yes New Wound: No Status Change of Wound: No Wound Location Body Site Modif: left Wound Location Body Site: other - AKA amputation incision site Wound Type: incision Incisional Wounds: Dehisced Incision Wound Thickness: Full Thickness Wound Length: 9.0 Wound Width: 3.5 Wound Depth: 3.5 Percent of Wound Wardner/Red: 85 Percent of Wound Bed Yellow/Wh: 15 Wound Drainage Description: Serosanguineous Wound Drainage Amount: Moderate Wound Drainage Odor: None/Absent Tissue Surrounding Wound: Macerated Wound General Appearance: Draining, Incision Dehiscence Wound Comment #1 Left AKA incision dehiscence site with wound vac therapy Recommendation -Keep clean and dry -Wound vac therapy as ordered by MD -Optimize nutrition -Assess and f/u with MD for any changes PHOENIX LOO RN Aug 26, 2016 23:37
[2016-08-27] VITALS: BP 144/68
[2016-08-27 04:00] VITALS: BP 152/75
[2016-08-27 07:39] VITALS: BP_SYST 139; BP_SYST 239; BP_DIAS 64
[2016-08-27 08:09] LABS: BASOPHILS % (AUTO) 0.5 % (0.0-2.0); EOSINOPHILS % (AUTO) 2.1 % (0.0-3.0); LYMPHOCYTES % (AUTO) 21.5 % (20.0-45.0); MEAN CORPUSCULAR HEMOGLOBIN 31.6 PG (27.0-31.0); MEAN CORPUSCULAR VOLUME 99 FL (80-99); MEAN PLATELET VOLUME 7.4 FL (6.5-10.1); MONOCYTES % (AUTO) 8.9 % (1.0-10.0); NEUTROPHILS % (AUTO) 66.9 % (45.0-75.0); PLATELET COUNT 258 K/UL (150-450); RED BLOOD COUNT 3.17 M/UL (4.70-6.10); RED CELL DISTRIBUTION WIDTH 17.5 % (11.6-14.8); WHITE BLOOD COUNT 8.2 K/UL (4.8-10.8)
[2016-08-27] MEDS: Vancomycin 1gm/D5W 275ml IVPB SCH ×2 (08:28)
[2016-08-27] MEDS: Carvedilol 12.5mg tab ORAL SCH ×2 (08:28→21:00)
[2016-08-27 08:49] LABS: ANION GAP 17 (5-15); CALCIUM 9.1 mg/dL (8.6-10.2); CARBON DIOXIDE 21 mEQ/L (20-30); CHLORIDE 98 mEQ/L (98-107); HEMOLYSIS 5; POTASSIUM 4.4 mEQ/L (3.4-4.9); SODIUM 136 mEQ/L (135-145)
[2016-08-27 11:03] VITALS: BP 132/57
[2016-08-27 15:54] VITALS: BP 136/61
[2016-08-27] MEDS: Cefepime HCl 1 GM in D5W 55 ML IV SCH (16:09)
--- NOTE | 2016-08-27 16:36 | Pulmonology Progress Note ---
Assessment/Plan Problems: (1) Sepsis (2) AKA stump complication (3) ARF (acute renal failure) (4) HTN (hypertension) (5) Cardiomyopathy (6) ICD (implantable cardioverter-defibrillator) in place (7) CAD (coronary artery disease) Assessment/Plan Continue with cefepime and vancomycin d# 5 / 10 IV antibiotics wound care, continue pneumovac check cultures anemia w/u orders from Dr. Gamboa noted check electrolytes all meds/notes reviewed MRI of left stump Subjective ROS Limited/Unobtainable: No Interval Events: no new complains Allergies: Coded Allergies: No Known Allergies (Unverified , 08/22/16) Objective Last 24 Hour Vital Signs Date Time Temp Pulse Resp B/P Pulse Ox O2 Delivery O2 Flow Rate FiO2 08/27/16 15:54 98.4 64 20 136/61 99 Room Air 08/27/16 11:03 98.2 72 15 132/57 99 Room Air 08/27/16 08:28 63 139/64 08/27/16 08:27 63 139/64 08/27/16 08:00 83 16 Room Air 21 08/27/16 07:39 98.8 63 14 139/64 98 Room Air 08/27/16 04:00 97.2 68 18 152/75 99 Room Air 08/27/16 00:00 98.1 65 16 144/68 100 Room Air 08/26/16 20:52 68 140/55 08/26/16 19:39 68 18 Room Air 21 Intake and Output 08/26/16 08/27/16 19:00 07:00 Intake Total 495 ml 680 ml Output Total 0 ml 500 ml Balance 495 ml 180 ml Intake Oral 440 ml 680 ml IV Total 55 ml Output Urine Total 500 ml Drainage Total 0 ml # Voids 1 2 # Bowel Movements 4 Objective HEENT: normocephalic Respiratory/Chest: chest wall non-tender, lungs clear Cardiovascular: normal peripheral pulses, normal rate Abdomen: normal bowel sounds, soft, non tender Extremities: no cyanosis, no clubbing Skin: no ulcers 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 Musculoskeletal: normal muscle bulk, other - wound vac attached to Left leg stump Laboratory Tests 08/27/16 06:00: White Blood Count 8.2, Red Blood Count 3.17L, Hemoglobin 10.0L, Hematocrit 31.3L , Mean Corpuscular Volume 99, Mean Corpuscular Hemoglobin 31.6H, Mean Corpuscular Hemoglobin Concent 32.0, Red Cell Distribution Width 17.5H, Platelet Count 258, Mean Platelet Volume 7.4, Neutrophils (%) (Auto) 66.9, Lymphocytes (%) (Auto) 21.5, Monocytes (%) (Auto) 8.9, Eosinophils (%) (Auto) 2.1, Basophils (%) (Auto) 0.5, Sodium Level 136, Potassium Level 4.4, Chloride Level 98, Carbon Dioxide Level 21, Anion Gap 17H, Blood Urea Nitrogen 15, Creatinine 1.0, Estimat Glomerular Filtration Rate , Glucose Level 84, Calcium Level 9.1 Current Medications Medications (Trade) Dose Ordered Sig/Sis Route PRN Reason Start Time Stop Time Status Last Admin Dose Admin Acetaminophen (Tylenol) 650 mg Q4H PRN ORAL fever 08/22/16 09:45 09/21/16 09:44 Al Hydroxide/Mg Hydroxide (Mylanta II) 30 ml Q6H PRN ORAL dyspepsia 08/22/16 09:45 09/21/16 09:44 Albuterol/ Ipratropium (DuoNeb 0.5-3(2.5)mg/3ml) 3 ml Q4H PRN HHN Shortness of Breath 08/22/16 18:15 08/27/16 18:14 Amlodipine Besylate (Norvasc) 5 mg DAILY ORAL 08/23/16 09:00 09/22/16 08:59 08/27/16 08:27 Atorvastatin Calcium (Lipitor) 20 mg BEDTIME ORAL 08/22/16 21:00 09/21/16 20:59 08/26/16 20:52 Carvedilol (Coreg) 12.5 mg EVERY 12 HOURS ORAL 08/22/16 21:00 09/21/16 20:59 08/27/16 08:28 Cefepime HCl 1 gm/ Dextrose 55 ml @ 110 mls/hr Q24H IV 08/22/16 16:00 08/29/16 15:59 08/27/16 16:09 Dextrose (Dextrose 50%) STAT PRN IV Hypoglycemia 08/22/16 09:45 09/21/16 09:44 Lorazepam (Ativan 2mg/ml 1ml) 0.5 mg Q4H PRN IV For Anxiety 08/22/16 09:45 08/29/16 09:44 Morphine Sulfate (Morphine Sulfate) 1 mg Q4H PRN IVP For Pain 08/22/16 09:45 08/29/16 09:44 08/26/16 09:28 Ondansetron HCl (Zofran) 4 mg Q6H PRN IVP Nausea & Vomiting 08/22/16 09:45 09/21/16 09:44 Polyethylene Glycol (Miralax) 17 gm HSPRN PRN ORAL Constipation 08/22/16 09:45 09/21/16 09:44 Vancomycin HCl 1 ea 1 ea DAILY PRN MISC Per rx protocol 08/22/16 09:45 09/21/16 09:44 Vancomycin HCl/ Dextrose (Vancomycin/D5W) 275 ml @ 183.708 mls/hr Q24H IVPB 08/23/16 09:00 08/28/16 08:59 08/27/16 08:28 Zolpidem Tartrate (Ambien) 5 mg HSPRN PRN ORAL Insomnia 08/22/16 09:45 09/21/16 09:44 WINDY DUFF Aug 27, 2016 16:36
--- NOTE | 2016-08-27 17:14 | Internal Med Progress Note ---
Subjective Date of Service: Aug 27, 2016 Physician Name Rancho Garduno Attending Physician Fritz Barry MD Current Medications Medications (Trade) Dose Ordered Sig/Sis Route PRN Reason Start Time Stop Time Status Last Admin Dose Admin Acetaminophen (Tylenol) 650 mg Q4H PRN ORAL fever 08/22/16 09:45 09/21/16 09:44 Al Hydroxide/Mg Hydroxide (Mylanta II) 30 ml Q6H PRN ORAL dyspepsia 08/22/16 09:45 09/21/16 09:44 Albuterol/ Ipratropium (DuoNeb 0.5-3(2.5)mg/3ml) 3 ml Q4H PRN HHN Shortness of Breath 08/22/16 18:15 08/27/16 18:14 Amlodipine Besylate (Norvasc) 5 mg DAILY ORAL 08/23/16 09:00 09/22/16 08:59 08/27/16 08:27 Atorvastatin Calcium (Lipitor) 20 mg BEDTIME ORAL 08/22/16 21:00 09/21/16 20:59 08/26/16 20:52 Carvedilol (Coreg) 12.5 mg EVERY 12 HOURS ORAL 08/22/16 21:00 09/21/16 20:59 08/27/16 08:28 Cefepime HCl 1 gm/ Dextrose 55 ml @ 110 mls/hr Q24H IV 08/22/16 16:00 08/29/16 15:59 08/27/16 16:09 Dextrose (Dextrose 50%) STAT PRN IV Hypoglycemia 08/22/16 09:45 09/21/16 09:44 Lorazepam (Ativan 2mg/ml 1ml) 0.5 mg Q4H PRN IV For Anxiety 08/22/16 09:45 08/29/16 09:44 Morphine Sulfate (Morphine Sulfate) 1 mg Q4H PRN IVP For Pain 08/22/16 09:45 08/29/16 09:44 08/26/16 09:28 Ondansetron HCl (Zofran) 4 mg Q6H PRN IVP Nausea & Vomiting 08/22/16 09:45 09/21/16 09:44 Polyethylene Glycol (Miralax) 17 gm HSPRN PRN ORAL Constipation 08/22/16 09:45 09/21/16 09:44 Vancomycin HCl 1 ea 1 ea DAILY PRN MISC Per rx protocol 08/22/16 09:45 09/21/16 09:44 Vancomycin HCl/ Dextrose (Vancomycin/D5W) 275 ml @ 183.708 mls/hr Q24H IVPB 08/23/16 09:00 08/28/16 08:59 08/27/16 08:28 Zolpidem Tartrate (Ambien) 5 mg HSPRN PRN ORAL Insomnia 08/22/16 09:45 09/21/16 09:44 Allergies: Coded Allergies: No Known Allergies (Unverified , 08/22/16) ROS Limited/Unobtainable: No Constitutional: Reports: no symptoms HEENT: Reports: no symptoms Cardiovascular: Reports: no symptoms Respiratory: Reports: no symptoms Gastrointestinal/Abdominal: Reports: no symptoms Genitourinary: Reports: no symptoms Neurologic/Psychiatric: Reports: no symptoms Subjective 71 YO M admitted with anemia and left AKA infection. Cover for Int Michael-Dr Barry. Await plastic surgery consult. Objective Last Vital Signs Date Time Temp Pulse Resp B/P Pulse Ox O2 Delivery O2 Flow Rate FiO2 08/27/16 15:54 98.4 64 20 136/61 99 Room Air 08/27/16 08:00 21 08/24/16 18:35 2.0 Laboratory Tests Test 08/27/16 06:00 White Blood Count 8.2 K/UL (4.8-10.8) Red Blood Count 3.17 M/UL (4.70-6.10) L Hemoglobin 10.0 G/DL (14.2-18.0) L Hematocrit 31.3 % (42.0-52.0) L Mean Corpuscular Volume 99 FL (80-99) Mean Corpuscular Hemoglobin 31.6 PG (27.0-31.0) H Mean Corpuscular Hemoglobin Concent 32.0 G/DL (32.0-36.0) Red Cell Distribution Width 17.5 % (11.6-14.8) H Platelet Count 258 K/UL (150-450) Mean Platelet Volume 7.4 FL (6.5-10.1) Neutrophils (%) (Auto) 66.9 % (45.0-75.0) Lymphocytes (%) (Auto) 21.5 % (20.0-45.0) Monocytes (%) (Auto) 8.9 % (1.0-10.0) Eosinophils (%) (Auto) 2.1 % (0.0-3.0) Basophils (%) (Auto) 0.5 % (0.0-2.0) Sodium Level 136 mEQ/L (135-145) Potassium Level 4.4 mEQ/L (3.4-4.9) Chloride Level 98 mEQ/L (98-107) Carbon Dioxide Level 21 mEQ/L (20-30) Anion Gap 17 (5-15) H Blood Urea Nitrogen 15 mg/dL (7-23) Creatinine 1.0 mg/dL (0.7-1.2) Estimat Glomerular Filtration Rate mL/min (>60) Glucose Level 84 mg/dL (74-106) Calcium Level 9.1 mg/dL (8.6-10.2) Intake and Output 08/26/16 08/27/16 19:00 07:00 Intake Total 495 ml 680 ml Output Total 0 ml 500 ml Balance 495 ml 180 ml Intake Oral 440 ml 680 ml IV Total 55 ml Output Urine Total 500 ml Drainage Total 0 ml # Voids 1 2 # Bowel Movements 4 Objective General Appearance: WD/WN, no apparent distress, alert EENT: PERRL/EOMI, normal ENT inspection Neck: non-tender, normal alignment, supple, normal inspection Cardiovascular: normal peripheral pulses, normal rate, regular rhythm, no gallop/murmur, no JVD Respiratory/Chest: chest wall non-tender, lungs clear, normal breath sounds, no respiratory distress, no accessory muscle use Abdomen: normal bowel sounds, non tender, soft, no organomegaly, no mass Extremities: normal range of motion, non-tender 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 (3) Cardiomyopathy (4) Peripheral vascular disease Assessment & Plan: See vascular surgery note. (5) HTN (hypertension) Assessment & Plan: Continue norvasc. (6) Hypercholesteremia Assessment & Plan: Continue lipitor. (7) Anemia Assessment & Plan: S/P transfusion 2 units PRBC. 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 Continue vanco and cefepime per ID. Await plastic surgery consult-Dr Devi. Bone scan neg for osteomyelitis Status: progressing RANCHO GARDUNO Aug 27, 2016 17:14
--- NOTE | 2016-08-27 17:51 | Consultation ---
History of Present Illness General Date patient seen: Aug 27, 2016 Time patient seen: 17:46 Chief Complaint: Abnormal Labs Referring physician: dr Barry Reason for Consultation: Left AKAwound Present Illness HPI Asked to see this patient with dehiscence of left aka. He underwent L AKA at [facility] in 06/2016. He is not an accurate historian but states that the incision opened. However, he is not sure when. He is a former smoker and has a h/o PVD and CAD. He is currently at [facility]. He is being treated with a wound vac which was just changed yesterday. His wound cultures on admission are negative. Allergies: Coded Allergies: No Known Allergies (Unverified , 08/22/16) Medication History Scheduled Amlodipine Besylate* (Amlodipine Besylate*), 5 MG ORAL DAILY, (Reported) Aspirin* (Aspir 81*), 81 MG ORAL DAILY, (Reported) Atorvastatin Calcium* (Lipitor*), 20 MG ORAL BEDTIME, (Reported) Azilsartan Med/Chlorthalidone (Edarbyclor 40-25 Mg Tablet), 1 TAB ORAL DAILY, ( Reported) Carvedilol (Coreg), 12.5 MG ORAL EVERY 12 HOURS, (Reported) Docusate Sodium* (Colace*), 100 MG ORAL DAILY, (Reported) Ferrous Sulfate* (Ferrous Sulfate*), 325 MG ORAL DAILY, (Reported) Isosorbide Dinitrate* (Isordil*), 40 MG ORAL BID, (Reported) Mirtazapine* (Remeron*), 45 MG ORAL BEDTIME, (Reported) Multivitamin With Minerals (Multivitamins With Minerals*), 1 TAB ORAL DAILY, ( Reported) Omeprazole (Omeprazole), 20 MG ORAL DAILY, (Reported) Piperacillin Sodium/Tazobactam (Zosyn 3.375 Gram Vial), 3.375 GM IV EVERY 6 HOURS, (Reported) Rivaroxaban (Xarelto), 20 MG ORAL DAILY, (Reported) Vancomycin Hcl/D5w (Vancomycin-D5w 1 G/250 Ml), 1 GM IVPB Q24H, (Reported) Scheduled PRN Acetaminophen (Acetaminophen), 650 MG PO EVERY 6 HOURS PRN for For Pain, ( Reported) Hydrocodone/Acetaminophen 5-325* (Hydrocodone/Acetaminophen 5-325*), 1 TAB ORAL Q6H PRN for For Pain, (Reported) Melatonin (Melatonin), 3 MG ORAL BEDTIME PRN for Insomnia, (Reported) Patient History History Provided By: Patient, Medical Record Healthcare decision maker pt alert and oriented Resuscitation status Full Code Advanced Directive on File Review of Systems Constitutional: Reports: no symptoms Eye: Reports: no symptoms Respiratory: Reports: no symptoms Cardiovascular: Reports: no symptoms Skin: Reports: see HPI Psychiatric: Reports: no symptoms Neurological: Reports: no symptoms Hematologic/Lymphatic: Reports: anemia Physical Exam General Appearance: no apparent distress, alert Respiratory/Chest: no respiratory distress Abdomen: soft Skin Exam: other - Left aka with wound vac intact and with good seal. No erythema or warmth in distal stump. Well healed left groin incision. Last 24 Hour Vital Signs Date Time Temp Pulse Resp B/P Pulse Ox O2 Delivery O2 Flow Rate FiO2 08/27/16 15:54 98.4 64 20 136/61 99 Room Air 08/27/16 11:03 98.2 72 15 132/57 99 Room Air 08/27/16 08:28 63 139/64 08/27/16 08:27 63 139/64 08/27/16 08:00 83 16 Room Air 21 08/27/16 07:39 98.8 63 14 139/64 98 Room Air 08/27/16 04:00 97.2 68 18 152/75 99 Room Air 08/27/16 00:00 98.1 65 16 144/68 100 Room Air 08/26/16 20:52 68 140/55 08/26/16 19:39 68 18 Room Air 21 Intake and Output 08/26/16 08/27/16 19:00 07:00 Intake Total 495 ml 680 ml Output Total 0 ml 500 ml Balance 495 ml 180 ml Intake Oral 440 ml 680 ml IV Total 55 ml Output Urine Total 500 ml Drainage Total 0 ml # Voids 1 2 # Bowel Movements 4 Laboratory Tests Test 08/27/16 06:00 White Blood Count 8.2 K/UL (4.8-10.8) Red Blood Count 3.17 M/UL (4.70-6.10) L Hemoglobin 10.0 G/DL (14.2-18.0) L Hematocrit 31.3 % (42.0-52.0) L Mean Corpuscular Volume 99 FL (80-99) Mean Corpuscular Hemoglobin 31.6 PG (27.0-31.0) H Mean Corpuscular Hemoglobin Concent 32.0 G/DL (32.0-36.0) Red Cell Distribution Width 17.5 % (11.6-14.8) H Platelet Count 258 K/UL (150-450) Mean Platelet Volume 7.4 FL (6.5-10.1) Neutrophils (%) (Auto) 66.9 % (45.0-75.0) Lymphocytes (%) (Auto) 21.5 % (20.0-45.0) Monocytes (%) (Auto) 8.9 % (1.0-10.0) Eosinophils (%) (Auto) 2.1 % (0.0-3.0) Basophils (%) (Auto) 0.5 % (0.0-2.0) Sodium Level 136 mEQ/L (135-145) Potassium Level 4.4 mEQ/L (3.4-4.9) Chloride Level 98 mEQ/L (98-107) Carbon Dioxide Level 21 mEQ/L (20-30) Anion Gap 17 (5-15) H Blood Urea Nitrogen 15 mg/dL (7-23) Creatinine 1.0 mg/dL (0.7-1.2) Estimat Glomerular Filtration Rate mL/min (>60) Glucose Level 84 mg/dL (74-106) Calcium Level 9.1 mg/dL (8.6-10.2) Height (Feet): 5 Height (Inches): 7.72 Weight (Pounds): 140 Medications Current Medications Medications (Trade) Dose Ordered Sig/Sis Route PRN Reason Start Time Stop Time Status Last Admin Dose Admin Acetaminophen (Tylenol) 650 mg Q4H PRN ORAL fever 08/22/16 09:45 09/21/16 09:44 Al Hydroxide/Mg Hydroxide (Mylanta II) 30 ml Q6H PRN ORAL dyspepsia 08/22/16 09:45 09/21/16 09:44 Albuterol/ Ipratropium (DuoNeb 0.5-3(2.5)mg/3ml) 3 ml Q4H PRN HHN Shortness of Breath 08/22/16 18:15 08/27/16 18:14 Amlodipine Besylate (Norvasc) 5 mg DAILY ORAL 08/23/16 09:00 4/4/17 08:59 08/27/16 08:27 Atorvastatin Calcium (Lipitor) 20 mg BEDTIME ORAL 08/22/16 21:00 09/21/16 20:59 08/26/16 20:52 Carvedilol (Coreg) 12.5 mg EVERY 12 HOURS ORAL 08/22/16 21:00 09/21/16 20:59 08/27/16 08:28 Cefepime HCl 1 gm/ Dextrose 55 ml @ 110 mls/hr Q24H IV 08/22/16 16:00 08/29/16 15:59 08/27/16 16:09 Dextrose (Dextrose 50%) STAT PRN IV Hypoglycemia 08/22/16 09:45 09/21/16 09:44 Lorazepam (Ativan 2mg/ml 1ml) 0.5 mg Q4H PRN IV For Anxiety 08/22/16 09:45 08/29/16 09:44 Morphine Sulfate (Morphine Sulfate) 1 mg Q4H PRN IVP For Pain 08/22/16 09:45 08/29/16 09:44 08/26/16 09:28 Ondansetron HCl (Zofran) 4 mg Q6H PRN IVP Nausea & Vomiting 08/22/16 09:45 09/21/16 09:44 Polyethylene Glycol (Miralax) 17 gm HSPRN PRN ORAL Constipation 08/22/16 09:45 09/21/16 09:44 Vancomycin HCl 1 ea 1 ea DAILY PRN MISC Per rx protocol 08/22/16 09:45 09/21/16 09:44 Vancomycin HCl/ Dextrose (Vancomycin/D5W) 275 ml @ 183.708 mls/hr Q24H IVPB 08/23/16 09:00 08/28/16 08:59 08/27/16 08:28 Zolpidem Tartrate (Ambien) 5 mg HSPRN PRN ORAL Insomnia 08/22/16 09:45 09/21/16 09:44 Assessment/Plan Status: stable Assessment/Plan Patient with h/o CAD and PVD with open wound s/p l aka 6 weeks ago. Wound is not infected per cultures and patient has normal WBC. Wound vac not disturbed today. Will have nurse send photo with next vac change. No need for urgent surgical intervention at this time. THis could be treated as an outpatient. ARLENE MERCADO Aug 27, 2016 17:51
[2016-08-27 19:00] VITALS: BP 140/63
[2016-08-27] MEDS: Atorvastatin 20mg tab ORAL SCH (21:00)
[2016-08-28] VITALS (8 sets, daily range): BP systolic 105–146; BP diastolic 52–78
[2016-08-28 07:19] LABS: BASOPHILS % (AUTO) 0.7 % (0.0-2.0); EOSINOPHILS % (AUTO) 2.1 % (0.0-3.0); LYMPHOCYTES % (AUTO) 28.6 % (20.0-45.0); MEAN CORPUSCULAR HEMOGLOBIN 31.8 PG (27.0-31.0); MEAN CORPUSCULAR HGB CONC 32.2 G/DL (32.0-36.0); MEAN CORPUSCULAR VOLUME 99 FL (80-99); MEAN PLATELET VOLUME 6.9 FL (6.5-10.1); MONOCYTES % (AUTO) 8.2 % (1.0-10.0); NEUTROPHILS % (AUTO) 60.4 % (45.0-75.0); PLATELET COUNT 234 K/UL (150-450); RED BLOOD COUNT 3.04 M/UL (4.70-6.10); RED CELL DISTRIBUTION WIDTH 16.9 % (11.6-14.8); WHITE BLOOD COUNT 7.4 K/UL (4.8-10.8)
[2016-08-28 07:23] LABS: ANION GAP 15 (5-15); CALCIUM 9.1 mg/dL (8.6-10.2); CARBON DIOXIDE 24 mEQ/L (20-30); CHLORIDE 98 mEQ/L (98-107); CREATININE 1.1 mg/dL (0.7-1.2); HEMOLYSIS 2; POTASSIUM 4.4 mEQ/L (3.4-4.9); SODIUM 137 mEQ/L (135-145)
[2016-08-28] MEDS: Carvedilol 12.5mg tab ORAL SCH ×2 (08:40→21:16)
--- NOTE | 2016-08-28 09:19 | Infectious Diseases Prog Note ---
Assessment/Plan Assessment/Plan A: The patient is a 71-year-old Leukocytosis , SP Infected left foot stump. 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 Osteo : bone scan findings are expected 6 mo , post op Bone scan : Equivocal findings for osteomyelitis involving the left proximal femoral stump, but doubtful PVD CAD COPD HTN HLD Depression P: Continue with cefepime and vancomycin d# , upon DC will change to Bactrim and Cipro to complete the course Monitor CBC Monitor BMP wound care Vasc Sx and plastic Sx are following Subjective Constitutional: Denies: anorexia, chills, drenching sweats, fatigue, fever, no symptoms, other Allergies: Coded Allergies: No Known Allergies (Unverified , 08/22/16) Objective Vital Signs Last 24 Hour Vital Signs Date Time Temp Pulse Resp B/P Pulse Ox O2 Delivery O2 Flow Rate FiO2 08/28/16 08:41 60 141/62 08/28/16 08:40 60 141/62 08/28/16 08:03 98.2 60 21 141/62 97 Room Air 08/28/16 04:00 98.1 60 18 124/62 100 Room Air 08/28/16 00:00 97.7 63 18 138/60 98 Room Air 08/27/16 21:00 78 140/63 08/27/16 19:00 98.1 78 20 140/63 98 Room Air 08/27/16 19:00 75 18 Room Air 21 08/27/16 15:54 98.4 64 20 136/61 99 Room Air 08/27/16 11:03 98.2 72 15 132/57 99 Room Air Height (Feet): 5 Height (Inches): 7.72 Weight (Pounds): 140 HEENT: atraumatic Respiratory/Chest: no respiratory distress Cardiovascular: regular rhythm Abdomen: non distended Laboratory Tests Test 08/28/16 05:25 White Blood Count 7.4 K/UL (4.8-10.8) Red Blood Count 3.04 M/UL (4.70-6.10) L Hemoglobin 9.7 G/DL (14.2-18.0) L Hematocrit 30.0 % (42.0-52.0) L Mean Corpuscular Volume 99 FL (80-99) Mean Corpuscular Hemoglobin 31.8 PG (27.0-31.0) H Mean Corpuscular Hemoglobin Concent 32.2 G/DL (32.0-36.0) Red Cell Distribution Width 16.9 % (11.6-14.8) H Platelet Count 234 K/UL (150-450) Mean Platelet Volume 6.9 FL (6.5-10.1) Neutrophils (%) (Auto) 60.4 % (45.0-75.0) Lymphocytes (%) (Auto) 28.6 % (20.0-45.0) Monocytes (%) (Auto) 8.2 % (1.0-10.0) Eosinophils (%) (Auto) 2.1 % (0.0-3.0) Basophils (%) (Auto) 0.7 % (0.0-2.0) Sodium Level 137 mEQ/L (135-145) Potassium Level 4.4 mEQ/L (3.4-4.9) Chloride Level 98 mEQ/L (98-107) Carbon Dioxide Level 24 mEQ/L (20-30) Anion Gap 15 (5-15) Blood Urea Nitrogen 19 mg/dL (7-23) Creatinine 1.1 mg/dL (0.7-1.2) Estimat Glomerular Filtration Rate mL/min (>60) Glucose Level 81 mg/dL (74-106) Calcium Level 9.1 mg/dL (8.6-10.2) Current Medications Medications (Trade) Dose Ordered Sig/Sis Route PRN Reason Start Time Stop Time Status Last Admin Dose Admin Acetaminophen (Tylenol) 650 mg Q4H PRN ORAL fever 08/22/16 09:45 09/21/16 09:44 Al Hydroxide/Mg Hydroxide (Mylanta II) 30 ml Q6H PRN ORAL dyspepsia 08/22/16 09:45 09/21/16 09:44 Amlodipine Besylate (Norvasc) 5 mg DAILY ORAL 08/23/16 09:00 09/22/16 08:59 08/28/16 08:41 Atorvastatin Calcium (Lipitor) 20 mg BEDTIME ORAL 08/22/16 21:00 09/21/16 20:59 08/27/16 21:00 Carvedilol (Coreg) 12.5 mg EVERY 12 HOURS ORAL 08/22/16 21:00 09/21/16 20:59 08/28/16 08:40 Cefepime HCl/ Dextrose (Maxipime/D5W) 55 ml @ 110 mls/hr Q24H IV 08/22/16 16:00 08/29/16 15:59 08/27/16 16:09 Dextrose (Dextrose 50%) STAT PRN IV Hypoglycemia 08/22/16 09:45 09/21/16 09:44 Lorazepam (Ativan 2mg/ml 1ml) 0.5 mg Q4H PRN IV For Anxiety 08/22/16 09:45 08/29/16 09:44 Morphine Sulfate (Morphine Sulfate) 1 mg Q4H PRN IVP For Pain 08/22/16 09:45 08/29/16 09:44 08/26/16 09:28 Ondansetron HCl (Zofran) 4 mg Q6H PRN IVP Nausea & Vomiting 08/22/16 09:45 09/21/16 09:44 Polyethylene Glycol (Miralax) 17 gm HSPRN PRN ORAL Constipation 08/22/16 09:45 09/21/16 09:44 Vancomycin HCl 1 ea 1 ea DAILY PRN MISC Per rx protocol 08/22/16 09:45 09/21/16 09:44 Zolpidem Tartrate (Ambien) 5 mg HSPRN PRN ORAL Insomnia 08/22/16 09:45 09/21/16 09:44 JACK PATTERSON M.D. Aug 28, 2016 09:19
[2016-08-28] MEDS: Morphine Sulfate 2mg/ml Inj IVP PRN (09:47)
[2016-08-28] MEDS: Cefepime HCl 1 GM in D5W 55 ML IV SCH (16:00)
[2016-08-28] MEDS ORDERED: Vancomycin 1gm/D5W 275ml IVPB SCH ×2 (18:00)
[2016-08-28] MEDS ORDERED: BACTRIM-DS1 EA ORAL (19:11)
[2016-08-28] MEDS ORDERED: CIPRO500 MG/51 PO (19:11)
--- NOTE | 2016-08-28 19:14 | Discharge Summary ---
Discharge Summary Hospital Course Date of Admission Aug 22, 2016 at 09:19 Date of Discharge Admitting Diagnosis anemia CARYN Lang is a 71 year old male who was admitted on Aug 22, 2016 at 09:19 for Anemia Hospital Course The patient was seen and examined at bedside and all new and available data was reviewed in the patients chart. Last 24 Hour Vital Signs Date Time Temp Pulse Resp B/P Pulse Ox O2 Delivery O2 Flow Rate FiO2 08/28/16 16:00 98.2 61 16 139/52 96 Room Air 08/28/16 12:08 97.8 95 20 105/55 96 Room Air 08/28/16 08:41 60 141/62 08/28/16 08:40 60 141/62 08/28/16 08:03 98.2 60 21 141/62 97 Room Air 08/28/16 04:00 98.1 60 18 124/62 100 Room Air 08/28/16 00:00 97.7 63 18 138/60 98 Room Air 08/27/16 21:00 78 140/63 GENERAL: The patient is a well-developed and well-nourished male, in no apparent distress. HEENT: Eyes, pupils are equal and responsive to light and accommodation. Extraocular movements are intact. NECK: Supple without lymphadenopathy. CHEST: Lungs are clear to auscultation bilaterally without wheezes or rales. CARDIOVASCULAR: Regular rhythm and rate. S1 and S2 are normal without murmurs, ABDOMEN: Soft, nontender, and nondistended. Positive bowel sounds. EXTREMITIES: There is presence of left [id number] amputation with wound vac. right side without clubbing, cyanosis, or edema. RECTAL: Refused. GENITAL: Refused. NEUROLOGIC: Cranial nerves II through XII are grossly intact without focal deficits. Motor strength is 5/5 bilaterally. Labs Test 08/26/16 07:00 08/27/16 06:00 08/28/16 05:25 White Blood Count 8.2 K/UL (4.8-10.8) 8.2 K/UL (4.8-10.8) 7.4 K/UL (4.8-10.8) Red Blood Count 3.24 M/UL (4.70-6.10) 3.17 M/UL (4.70-6.10) 3.04 M/UL (4.70-6.10) Hemoglobin 10.3 G/DL (14.2-18.0) 10.0 G/DL (14.2-18.0) 9.7 G/DL (14.2-18.0) Hematocrit 32.0 % (42.0-52.0) 31.3 % (42.0-52.0) 30.0 % (42.0-52.0) Mean Corpuscular Volume 99 FL (80-99) 99 FL (80-99) 99 FL (80-99) Mean Corpuscular Hemoglobin 31.9 PG (27.0-31.0) 31.6 PG (27.0-31.0) 31.8 PG (27.0-31.0) Mean Corpuscular Hemoglobin Concent 32.2 G/DL (32.0-36.0) 32.0 G/DL (32.0-36.0) 32.2 G/DL (32.0-36.0) Red Cell Distribution Width 17.4 % (11.6-14.8) 17.5 % (11.6-14.8) 16.9 % (11.6-14.8) Platelet Count 266 K/UL (150-450) 258 K/UL (150-450) 234 K/UL (150-450) Mean Platelet Volume 6.8 FL (6.5-10.1) 7.4 FL (6.5-10.1) 6.9 FL (6.5-10.1) Neutrophils (%) (Auto) 65.7 % (45.0-75.0) 66.9 % (45.0-75.0) 60.4 % (45.0-75.0) Lymphocytes (%) (Auto) 23.7 % (20.0-45.0) 21.5 % (20.0-45.0) 28.6 % (20.0-45.0) Monocytes (%) (Auto) 7.7 % (1.0-10.0) 8.9 % (1.0-10.0) 8.2 % (1.0-10.0) Eosinophils (%) (Auto) 2.5 % (0.0-3.0) 2.1 % (0.0-3.0) 2.1 % (0.0-3.0) Basophils (%) (Auto) 0.4 % (0.0-2.0) 0.5 % (0.0-2.0) 0.7 % (0.0-2.0) Sodium Level 137 mEQ/L (135-145) 136 mEQ/L (135-145) 137 mEQ/L (135-145) Potassium Level 4.4 mEQ/L (3.4-4.9) 4.4 mEQ/L (3.4-4.9) 4.4 mEQ/L (3.4-4.9) Chloride Level 100 mEQ/L (98-107) 98 mEQ/L (98-107) 98 mEQ/L (98-107) Carbon Dioxide Level 23 mEQ/L (20-30) 21 mEQ/L (20-30) 24 mEQ/L (20-30) Anion Gap 14 (5-15) 17 (5-15) 15 (5-15) Blood Urea Nitrogen 17 mg/dL (7-23) 15 mg/dL (7-23) 19 mg/dL (7-23) Creatinine 0.9 mg/dL (0.7-1.2) 1.0 mg/dL (0.7-1.2) 1.1 mg/dL (0.7-1.2) Estimat Glomerular Filtration Rate mL/min (>60) mL/min (>60) mL/min (>60) Glucose Level 84 mg/dL (74-106) 84 mg/dL (74-106) 81 mg/dL (74-106) Calcium Level 9.3 mg/dL (8.6-10.2) 9.1 mg/dL (8.6-10.2) 9.1 mg/dL (8.6-10.2) Plan: DC to [facility] tonight. (Patient was seen earlier today. Signature timestamp does not reflect patient encounter time) Fritz Barry MD Discharge Discharge Disposition Patient was discharged to Discharge Diagnoses: Fritz Barry MD Aug 28, 2016 19:14
[2016-08-28] MEDS: Atorvastatin 20mg tab ORAL SCH (21:16)
[2016-08-28] MEDS ORDERED: D5 1/2NS 1000ml IV ONE (23:09)
[2016-08-28] MEDS ORDERED: Tubing IV Secondary IV ONE (23:09)
--- NOTE | 2016-08-28 23:31 | Pulmonology Progress Note ---
Assessment/Plan Problems: (1) Sepsis (2) AKA stump complication (3) ARF (acute renal failure) (4) HTN (hypertension) (5) Cardiomyopathy (6) ICD (implantable cardioverter-defibrillator) in place (7) CAD (coronary artery disease) Assessment/Plan Continue with cefepime and vancomycin d# 5 / 10 IV antibiotics wound care, continue pneumovac check cultures anemia w/u orders from Dr. Gamboa noted check electrolytes all meds/notes reviewed MRI of left stump Subjective Allergies: Coded Allergies: No Known Allergies (Unverified , 08/22/16) Objective Last 24 Hour Vital Signs Date Time Temp Pulse Resp B/P Pulse Ox O2 Delivery O2 Flow Rate FiO2 08/28/16 21:16 68 146/78 08/28/16 20:00 98.1 68 16 146/78 99 Room Air 08/28/16 16:00 98.2 61 16 139/52 96 Room Air 08/28/16 12:08 97.8 95 20 105/55 96 Room Air 08/28/16 08:41 60 141/62 08/28/16 08:40 60 141/62 08/28/16 08:03 98.2 60 21 141/62 97 Room Air 08/28/16 04:00 98.1 60 18 124/62 100 Room Air 08/28/16 00:00 97.7 63 18 138/60 98 Room Air Intake and Output 08/27/16 08/28/16 19:00 07:00 Intake Total 1055 ml 1040 ml Output Total 200 ml 1500 ml Balance 855 ml -460 ml Intake Oral 1000 ml 1040 ml IV Total 55 ml Output Urine Total 200 ml 1500 ml Drainage Total 0 ml # Voids 3 6 # Bowel Movements 1 Objective HEENT: normocephalic Respiratory/Chest: chest wall non-tender, lungs clear Cardiovascular: normal peripheral pulses, normal rate Abdomen: normal bowel sounds, soft, non tender Extremities: no cyanosis, no clubbing Skin: no ulcers 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 Musculoskeletal: normal muscle bulk, other - wound vac attached to Left leg stump Laboratory Tests 08/28/16 05:25: White Blood Count 7.4, Red Blood Count 3.04L, Hemoglobin 9.7L, Hematocrit 30.0L , Mean Corpuscular Volume 99, Mean Corpuscular Hemoglobin 31.8H, Mean Corpuscular Hemoglobin Concent 32.2, Red Cell Distribution Width 16.9H, Platelet Count 234, Mean Platelet Volume 6.9, Neutrophils (%) (Auto) 60.4, Lymphocytes (%) (Auto) 28.6, Monocytes (%) (Auto) 8.2, Eosinophils (%) (Auto) 2.1, Basophils (%) (Auto) 0.7, Sodium Level 137, Potassium Level 4.4, Chloride Level 98, Carbon Dioxide Level 24, Anion Gap 15, Blood Urea Nitrogen 19, Creatinine 1.1, Estimat Glomerular Filtration Rate , Glucose Level 81, Calcium Level 9.1 Current Medications Medications (Trade) Dose Ordered Sig/Sis Route PRN Reason Start Time Stop Time Status Last Admin Dose Admin Acetaminophen (Tylenol) 650 mg Q4H PRN ORAL fever 08/22/16 09:45 09/21/16 09:44 Al Hydroxide/Mg Hydroxide (Mylanta II) 30 ml Q6H PRN ORAL dyspepsia 08/22/16 09:45 09/21/16 09:44 Amlodipine Besylate (Norvasc) 5 mg DAILY ORAL 08/23/16 09:00 09/22/16 08:59 08/28/16 08:41 Atorvastatin Calcium (Lipitor) 20 mg BEDTIME ORAL 08/22/16 21:00 09/21/16 20:59 08/28/16 21:16 Carvedilol (Coreg) 12.5 mg EVERY 12 HOURS ORAL 08/22/16 21:00 09/21/16 20:59 08/28/16 21:16 Cefepime HCl 1 gm/ Dextrose 55 ml @ 110 mls/hr Q24H IV 08/22/16 16:00 09/01/16 15:59 08/28/16 16:00 Dextrose (Dextrose 50%) STAT PRN IV Hypoglycemia 08/22/16 09:45 09/21/16 09:44 Lorazepam (Ativan 2mg/ml 1ml) 0.5 mg Q4H PRN IV For Anxiety 08/22/16 09:45 08/29/16 09:44 Morphine Sulfate (Morphine Sulfate) 1 mg Q4H PRN IVP For Pain 08/22/16 09:45 08/29/16 09:44 08/28/16 09:47 Ondansetron HCl (Zofran) 4 mg Q6H PRN IVP Nausea & Vomiting 08/22/16 09:45 09/21/16 09:44 Polyethylene Glycol (Miralax) 17 gm HSPRN PRN ORAL Constipation 08/22/16 09:45 09/21/16 09:44 Vancomycin HCl 1 ea 1 ea DAILY PRN MISC Per rx protocol 08/22/16 09:45 09/21/16 09:44 Vancomycin HCl/ Dextrose (Vancomycin/D5W) 275 ml @ 183.708 mls/hr Q24H IVPB 08/28/16 18:00 09/01/16 17:59 08/28/16 18:00 Zolpidem Tartrate (Ambien) 5 mg HSPRN PRN ORAL Insomnia 08/22/16 09:45 09/21/16 09:44 WINDY DUFF Aug 28, 2016 23:31
--- NOTE | 2016-09-01 12:19 | Diagnostic Imaging Report ---
APPROVED REPORT CPT Code: 87159 Present Symptoms Comments: R/O DVT Right leg RIGHT LEG: Venous imaging reveals a patent deep venous system. There is no evidence of thrombus within the femoral, popliteal or tibial segments. The greater saphenous vein is also within normal limits. Doppler indicates normal spontaneous flow within these segments.
--- NOTE | 2016-09-16 07:59 | Consultation ---
DATE OF CONSULTATION: 08/26/2016 VASCULAR SURGERY CONSULTATION CONSULTING PHYSICIAN: Vikas Gamboa M.D. REFERRING PHYSICIAN: Fritz Barry M.D. REASON FOR EVALUATION: Left above-knee amputation stump and history of renal failure. HISTORY OF PRESENT ILLNESS: This is a 71-year-old, male, who has been admitted to the hospital with anemia. The patient has multiple organ dysfunction with heart failure, ejection fraction less than 30%, congestive heart failure, severe peripheral vascular arterial occlusive disease, and left iliac femoral vessel. The patient had an occluded left axillofemoral bypass graft with footdrop s/p left leg above knee amputation. The patient now had a small incisional wound, which has been treated by wound VAC and local wound care. Vascular Surgery is consulted for further evaluation. The patient has no other complaints. PAST MEDICAL HISTORY: As above. History of hypertension, smoker, peripheral vascular arterial occlusive disease, history of occluded left axillofemoral bypass graft, occluded left iliac and femoral vessel, history of intracardiac device, history of left leg above-knee amputation, occluded VAC, congestive heart failure with ejection fraction less than 30%, and anemia. MEDICATIONS: See attached MAR. ALLERGIES: No known drug allergies. SOCIAL HISTORY: He smokes. No history of drinking alcohol use. FAMILY HISTORY: Unremarkable. REVIEW OF SYSTEMS: Cardiovascular: No history of chest pain or palpitation. Pulmonary: No cough or hemoptysis. Gastrointestinal: No history of abdominal pain, constipation, or diarrhea. Genitourinary: No urinary symptoms. Neurological: No history of stroke or seizures. PHYSICAL EXAMINATION: VITAL SIGNS: The patient is afebrile at temperature 97.9 degrees, heart rate 61, blood pressure 139/60, respirations 19, and saturation 97% on room air. NECK: He has palpable radial pulses. No carotid bruits. LUNGS: Clear to auscultation. HEART: Regular rate and rhythm. ABDOMEN: Soft and nontender. EXTREMITIES: He has absent left femoral pulses. Left above-knee amputation stump incision is healing with a small kathy-incisional wound with a wound VAC in place. Right foot is warm with no ulceration. LABORATORY DATA: Laboratory revealed a WBC of 8.3, hemoglobin 10.3, and platelet count of 266,000. Sodium is 137, potassium 4.4, chloride 100, CO2 is 23, BUN is 19, creatinine 0.9, and glucose 84. IMPRESSION: 1. Left above-knee amputation stump wound dehiscence with superficial wound infection. The patient has pseudomonas growth 2. Chronic smoking history. 3. Congestive heart failure with ejection fraction of less than 30%. 4. Occluded left femoral vessel, left iliac vessels and left axillofemoral bypass execution. 5. Peripheral vascular arterial occlusive disease. 6. The patient with automated implantable cardioverter defibrillator. 7. Hypertension. PLAN AND RECOMMENDATION: 1. Above-knee amputation stump wound care with wound VAC change q 48 hours. 2. Follow up with plastic surgery recommendation. 3. Continue with antibiotics per ID service. The patient had pseudomonas growth in the past Vikas Gamboa M.D. DR: BRIT JOB#: [id number] CC: [email or web address]
== END 2016-08-28 23:10 | DRG 871 ==
LOC: EDBD 08:40 → EMR 09:05 → 3E 09:19 → EDBEDREQ 09:23 → 4E 14:37
PROC: 30233N1 Transfusion of Nonautologous Red Blood Cells into Peripheral Vein, Percutaneous Approach (ICD-10-PCS; principal; 2016-08-23)
DX: A41.9 Sepsis, unspecified organism (principal); N17.0 Acute kidney failure with tubular necrosis; T87.44 Infection of amputation stump, left lower extremity; I42.9 Cardiomyopathy, unspecified; I74.5 Embolism and thrombosis of iliac artery; Y83.5 Amputation of limb(s) as the cause of abnormal reaction of the patient, or of later complication, without mention of misadventure at the time of the procedure; T87.81 Dehiscence of amputation stump; J44.9 Chronic obstructive pulmonary disease, unspecified; I10 Essential (primary) hypertension; I73.9 Peripheral vascular disease, unspecified; I25.10 Atherosclerotic heart disease of native coronary artery without angina pectoris; D50.9 Iron deficiency anemia, unspecified; I50.9 Heart failure, unspecified; E78.00 Pure hypercholesterolemia, unspecified; Z95.810 Presence of automatic (implantable) cardiac defibrillator; B96.89 Other specified bacterial agents as the cause of diseases classified elsewhere; F32.9 Major depressive disorder, single episode, unspecified; I48.91 Unspecified atrial fibrillation; Z87.891 Personal history of nicotine dependence
CPT/HCPCS: 36415; 71010; 76775; 78315; 80048; 80053; 80061; 80202; 82550; 82553; 82607; 82728; 82746; 83036; 83540; 83550; 83880; 84134; 84443; 84484; 85007; 85025; 85610; 85730; 86850; 86900; 86901; 86920; 87070; 87081; 87181; 87205; 93306; 93971; 94664; 97802; J2405

== ENCOUNTER 2016-12-03 10:45 | Outpatient (RCR) | payer MEDICARE, OTHER ==
[~2016-12-03] VITALS: Ht 172.7 cm; Wt 58.5 kg
[~2016-12-03 10:45] MED LIST: ACETAMINOPHEN325 M3 PO; AMLODIPINE BESYL5 MG ORAL; ASPIR 8181 MG ORAL; BACTRIM-DS1 EA ORAL; CIPRO500 MG/51 PO; COLACE100 MG ORAL; COREG12.5 MG ORAL; EDARBYCLOR 40-1 EAC1 ORAL; FERROUS SULFAT325 MG ORAL; HYDROCODON-ACE1 EA15 ORAL; ISOSORBIDE DINI40 MG ORAL; LIPITOR20 MG ORAL; MELATONIN3 MG ORAL; MIRTAZAPINE45 MG ORAL; MULTIVITAMINS1 EAC8 ORAL; OMEPRAZOLE20 M3 ORAL; VANCOMYCIN1 GM/2502 IVPB; XARELTO20 MG ORAL; ZOSYN 3.3753.375 GM IV
[2016-12-11] MEDS ORDERED: Lidocaine HCl 2% Jelly 5ml Tube TOPIC ONE (08:00)
[2016-12-16] MEDS ORDERED: Lidocaine HCl 2% Jelly 5ml Tube TOPIC ONE (18:00)
== END 2016-12-18 | disposition home or self-care (01) ==
LOC: WCC 10:45
DX: T81.31XD Disruption of external operation (surgical) wound, not elsewhere classified, subsequent encounter (principal); S71.102D Unspecified open wound, left thigh, subsequent encounter; I73.9 Peripheral vascular disease, unspecified; X58.XXXD Exposure to other specified factors, subsequent encounter; I10 Essential (primary) hypertension; Z79.82 Long term (current) use of aspirin
CPT/HCPCS: 11043

== ENCOUNTER 2016-12-24 11:27 | Outpatient (RCR) | payer MEDICARE, OTHER ==
[~2016-12-24] VITALS: Ht 172.7 cm; Wt 58.5 kg
[2016-12-25] MEDS ORDERED: Lidocaine HCl 2% Jelly 5ml Tube TOPIC ONE (13:00)
== END 2017-01-18 | disposition home or self-care (01) ==
LOC: WCC 11:27
DX: T81.31XD Disruption of external operation (surgical) wound, not elsewhere classified, subsequent encounter (principal); I10 Essential (primary) hypertension; S71.102D Unspecified open wound, left thigh, subsequent encounter; I73.9 Peripheral vascular disease, unspecified; X58.XXXD Exposure to other specified factors, subsequent encounter; Z79.82 Long term (current) use of aspirin
CPT/HCPCS: 11042; 11043; 15271; Q4132; Q4133

== ENCOUNTER 2017-01-21 12:00 | Outpatient (RCR) | payer MEDICARE, OTHER | END 2017-02-18 | disposition home or self-care (01) | LOC: WCC 12:00 | DX: T81.31XD Disruption of external operation (surgical) wound, not elsewhere classified, subsequent encounter (principal); S71.102D Unspecified open wound, left thigh, subsequent encounter; I73.9 Peripheral vascular disease, unspecified; X58.XXXD Exposure to other specified factors, subsequent encounter; I10 Essential (primary) hypertension; Z79.82 Long term (current) use of aspirin | CPT/HCPCS: 11042; G0463 ==